=== PATIENT | female | born 1950 | race Caucasian/White ===

== ENCOUNTER → 2016-09-10 | Outpatient (CLI) | payer BC ==
[2016-09-10 09:58] LABS: Basophils % (A) 0 %; CH 35.1; CHCM 34.4; Eosinophils # (A) 0.1 k/uL (0-0.7); Eosinophils % (A) 2 %; HCT 41.1 % (34.0-46.0); HDW 2.37; HGB 13.5 gm/dL (11.4-16.0); Luc # (Auto) 0.18; Luc % (Auto) 2; Lymphocytes # (A) 1.5 k/uL (1.0-4.8); Lymphocytes % (A) 19 %; MCH 33.8 pg (25.0-35.0); MCHC 32.9 g/dL (31.0-37.0); MCV 102.6 fL (80.0-100.0); Macrocytosis Slight; Mean Platelet Volume 8.7; Monocytes # (A) 0.2 k/uL (0-1.0); Monocytes % (A) 3 %; Neutrophils # (A) 5.5 k/uL (1.3-7.7); Neutrophils % (A) 73 %; RDW 12.8 % (11.5-15.5); WBC 7.5 k/uL (3.8-10.6); WBC (Perox) 7.77
[2016-09-10 10:15] LABS: ALT 33 U/L (9-52); AST 30 U/L (14-36); Non-African American GFR(MDRD) >60 (>60 ml/min/1.73 sqM)
== END ==
LOC: LABWHC1 09:29
PROVIDERS: ATTEND Physician Assistant Medical
DX: L20.89 Other atopic dermatitis (principal)
CPT/HCPCS: 36415; 82565; 84450; 84460; 85025

== ENCOUNTER → 2016-12-11 | Outpatient (CLI) | payer BC ==
[2016-12-11 09:35] LABS: ALT 31 U/L (9-52); AST 32 U/L (14-36); Non-African American GFR(MDRD) >60 (>60 ml/min/1.73 sqM)
[2016-12-11 09:36] LABS: Basophils % (A) 0 %; CHCM 34.8; Eosinophils # (A) 0.2 k/uL (0-0.7); Eosinophils % (A) 3 %; HCT 42.1 % (34.0-46.0); HDW 2.37; HGB 14.5 gm/dL (11.4-16.0); Luc # (Auto) 0.22; Luc % (Auto) 3; Lymphocytes # (A) 1.8 k/uL (1.0-4.8); Lymphocytes % (A) 26 %; MCH 34.8 pg (25.0-35.0); MCHC 34.4 g/dL (31.0-37.0); Mean Platelet Volume 7.6; Monocytes # (A) 0.3 k/uL (0-1.0); Monocytes % (A) 5 %; Neutrophils # (A) 4.2 k/uL (1.3-7.7); Neutrophils % (A) 62 %; RBC 4.17 m/uL (3.80-5.40); RDW 12.8 % (11.5-15.5); WBC 6.8 k/uL (3.8-10.6); WBC (Perox) 6.97
== END | disposition home or self-care (01) ==
LOC: LABWHC1 08:31
PROVIDERS: ATTEND Physician Assistant Medical
DX: L20.89 Other atopic dermatitis (principal)
CPT/HCPCS: 36415; 82565; 84450; 84460; 85025

== ENCOUNTER → 2017-03-11 | Outpatient (CLI) | payer BC ==
[2017-03-11 11:47] LABS: Basophils % (A) 1 %; CH 34.3; CHCM 34.1; Eosinophils # (A) 0.1 k/uL (0-0.7); Eosinophils % (A) 2 %; HCT 41.1 % (34.0-46.0); HDW 2.37; Luc # (Auto) 0.15; Luc % (Auto) 2; Lymphocytes # (A) 1.7 k/uL (1.0-4.8); Lymphocytes % (A) 26 %; MCH 34.3 pg (25.0-35.0); MCHC 33.9 g/dL (31.0-37.0); MCV 101.1 fL (80.0-100.0); Macrocytosis Slight; Mean Platelet Volume 7.6; Monocytes # (A) 0.4 k/uL (0-1.0); Monocytes % (A) 6 %; Neutrophils # (A) 4.3 k/uL (1.3-7.7); Neutrophils % (A) 64 %; RBC 4.07 m/uL (3.80-5.40); RDW 13.3 % (11.5-15.5); WBC 6.7 k/uL (3.8-10.6); WBC (Perox) 7.14
[2017-03-11 12:00] LABS: ALT 48 U/L (9-52); AST 37 U/L (14-36); Non-African American GFR(MDRD) >60 (>60 ml/min/1.73 sqM)
== END ==
LOC: LABWHC1 10:53
PROVIDERS: ATTEND Physician Assistant Medical
DX: L20.89 Other atopic dermatitis (principal)
CPT/HCPCS: 36415; 82565; 84450; 84460; 85025

== ENCOUNTER → 2017-08-20 | Outpatient (CLI) | payer BC ==
[2017-08-20 08:03] LABS: Basophils # (A) 0.1 k/uL (0-0.2); Basophils % (A) 1 %; Eosinophils # (A) 0.4 k/uL (0-0.7); Eosinophils % (A) 5 %; HCT 40.2 % (34.0-46.0); HGB 13.4 gm/dL (11.4-16.0); Lymphocytes # (A) 2.3 k/uL (1.0-4.8); Lymphocytes % (A) 31 %; MCH 33.6 pg (25.0-35.0); MCHC 33.4 g/dL (31.0-37.0); MCV 100.5 fL (80.0-100.0); Mean Platelet Volume 7.5; Monocytes # (A) 0.3 k/uL (0-1.0); Monocytes % (A) 4 %; Neutrophils # (A) 4.1 k/uL (1.3-7.7); Neutrophils % (A) 57 %; Platelet Count 296 k/uL (150-450); RDW 12.6 % (11.5-15.5); WBC 7.2 k/uL (3.8-10.6)
[2017-08-20 08:33] LABS: ALT 32 U/L (9-52); AST 32 U/L (14-36); Albumin 4.2 g/dL (3.5-5.0); Anion Gap 11 mmol/L; Blood Urea Nitrogen 20 mg/dL (7-17); Calcium 10.5 mg/dL (8.4-10.2); Carbon Dioxide 30 mmol/L (22-30); Chloride 102 mmol/L (98-107); Glucose 93 mg/dL (74-99); Phosphorus 4.2 mg/dL (2.5-4.5); Potassium 4.4 mmol/L (3.5-5.1); Sodium 143 mmol/L (137-145)
== END ==
LOC: LABWHC1 07:22
PROVIDERS: ATTEND Physician Assistant Medical
DX: L20.89 Other atopic dermatitis (principal)
CPT/HCPCS: 36415; 80069; 84450; 84460; 85025

== ENCOUNTER → 2017-11-29 | Outpatient (CLI) | payer MEDICARE ==
[2017-11-29 10:35] LABS: Basophils % (A) 1 %; Eosinophils # (A) 0.2 k/uL (0-0.7); Eosinophils % (A) 4 %; HCT 43.4 % (34.0-46.0); HGB 14.6 gm/dL (11.4-16.0); Lymphocytes % (A) 34 %; MCH 33.5 pg (25.0-35.0); MCHC 33.6 g/dL (31.0-37.0); MCV 99.8 fL (80.0-100.0); Mean Platelet Volume 7.6; Monocytes # (A) 0.3 k/uL (0-1.0); Monocytes % (A) 5 %; Neutrophils # (A) 3.1 k/uL (1.3-7.7); Neutrophils % (A) 54 %; Platelet Count 304 k/uL (150-450); RBC 4.35 m/uL (3.80-5.40); RDW 12.8 % (11.5-15.5); WBC 5.7 k/uL (3.8-10.6)
[2017-11-29 11:03] LABS: ALT 34 U/L (9-52); AST 34 U/L (14-36); Albumin 4.9 g/dL (3.5-5.0); Anion Gap 17 mmol/L; Blood Urea Nitrogen 13 mg/dL (7-17); Calcium 10.6 mg/dL (8.4-10.2); Carbon Dioxide 26 mmol/L (22-30); Chloride 101 mmol/L (98-107); Glucose 112 mg/dL (74-99); Phosphorus 3.7 mg/dL (2.5-4.5); Potassium 4.2 mmol/L (3.5-5.1); Sodium 144 mmol/L (137-145)
== END | disposition home or self-care (01) ==
LOC: LABWHC1 09:39
PROVIDERS: ATTEND Physician Assistant Medical
DX: L20.89 Other atopic dermatitis (principal)
CPT/HCPCS: 36415; 80069; 84450; 84460; 85025

== ENCOUNTER → 2018-03-08 | Outpatient (CLI) | payer MEDICARE ==
[2018-03-08 11:47] LABS: Basophils % (A) 1 %; Eosinophils # (A) 0.3 k/uL (0-0.7); Eosinophils % (A) 5 %; HCT 45.2 % (34.0-46.0); HGB 14.7 gm/dL (11.4-16.0); Lymphocytes # (A) 1.7 k/uL (1.0-4.8); Lymphocytes % (A) 27 %; MCH 33.3 pg (25.0-35.0); MCHC 32.6 g/dL (31.0-37.0); MCV 102.2 fL (80.0-100.0); Macrocytosis Slight; Mean Platelet Volume 7.9; Monocytes # (A) 0.4 k/uL (0-1.0); Monocytes % (A) 6 %; Neutrophils # (A) 3.8 k/uL (1.3-7.7); Neutrophils % (A) 60 %; Platelet Count 250 k/uL (150-450); RBC 4.42 m/uL (3.80-5.40); RDW 13.3 % (11.5-15.5); WBC 6.3 k/uL (3.8-10.6)
[2018-03-08 11:48] LABS: ALT 30 U/L (9-52); AST 32 U/L (14-36); Albumin 4.5 g/dL (3.5-5.0); Anion Gap 9 mmol/L; Blood Urea Nitrogen 16 mg/dL (7-17); Calcium 10.8 mg/dL (8.4-10.2); Carbon Dioxide 32 mmol/L (22-30); Chloride 103 mmol/L (98-107); Glucose 93 mg/dL (74-99); Phosphorus 3.8 mg/dL (2.5-4.5); Sodium 144 mmol/L (137-145)
== END | disposition home or self-care (01) ==
LOC: LABWHC1 10:29
PROVIDERS: ATTEND Physician Assistant Medical
DX: L20.89 Other atopic dermatitis (principal)
CPT/HCPCS: 36415; 80069; 84450; 84460; 85025

== ENCOUNTER → 2018-03-27 | Outpatient (CLI) | payer MEDICARE ==
--- NOTE | 2018-03-29 11:31 | MM ---
Reason for exam: screening (asymptomatic). Last mammogram was performed 2 years and 3 months ago. History: Patient is postmenopausal. Family history of breast cancer in paternal aunt at age 50. Took hormonal contraceptives for 10 years beginning at age 22. Took estrogen for 2 months beginning at age 53. Physical Findings: A clinical breast exam by your physician is recommended on an annual basis and results should be correlated with mammographic findings. MG Screening Mammo w CAD Bilateral CC and MLO view(s) were taken. Prior study comparison: December 31, 2015, bilateral MG screening mammo w CAD. November 12, 2014, bilateral MG screening mammo w CAD. The breast tissue is extremely dense which could obscure a lesion on mammography. Prominent right axillary nodes were present in 2014. No significant changes when compared with prior studies. ASSESSMENT: Negative, BI-RAD 1 RECOMMENDATION: Routine screening mammogram of both breasts in 1 year. Patient should continue monthly self breast exams. A negative report should not preclude additional follow up of suspicious palpable abnormalities.
== END | disposition home or self-care (01) ==
LOC: RADMAMWWP 14:30
PROVIDERS: ATTEND Family Medicine
DX: Z12.31 Encounter for screening mammogram for malignant neoplasm of breast (principal)
CPT/HCPCS: 77067

== ENCOUNTER → 2018-09-11 | Outpatient (CLI) | payer MEDICARE ==
--- NOTE | 2018-09-12 12:37 | ECHOF ---
Referral Reason:R01.1 Cardiac Murmur MEASUREMENTS -------- HEIGHT: 165.1 cm WEIGHT: 49.9 kg BP: RVIDd: 2.6 cm (< 3.3) IVSd: 1.1 cm (0.6 - 1.1) LVIDd: 3.7 cm (3.9 - 5.3) LVPWd: 1.1 cm (0.6 - 1.1) IVSs: 1.3 cm LVIDs: 3.1 cm LVPWs: 1.2 cm LAESV Index (A-L): 18.58 ml/m Ao Diam: 2.8 cm (2.0 - 3.7) AV Cusp: 1.5 cm (1.5 - 2.6) MV EXCURSION: 17.310 mm (> 18.000) MV EF SLOPE: 85 mm/s (70 - 150) EPSS: 0.7 cm MV E Edwin: 0.70 m/s MV DecT: 377 ms MV A Edwin: 1.18 m/s MV E/A Ratio: 0.59 AV maxP.92 mmHg AV meanP.26 mmHg RAP: 5.00 mmHg RVSP: 21.33 mmHg FINDINGS -------- Sinus rhythm. This was a technically good study. The left ventricular size is normal. There is borderline concentric left ventricular hypertrophy. There is mild global hypokinesis of LV . Overall left ventricular systolic function is mildly impa ired with, an EF between 45 - 50 %. The right ventricle is normal in size and function. Normal LA size by volume 22+/-6 ml/m2. The right atrium is normal in size. Aortic valve is trileaflet and is mildly thickened. There is no evidence of aortic regurgitation. There is mild aortic stenosis present. Peak/mean gradient across the Aortic Valve is 17.92mmHg / 9 .26mmHg. The mitral valve leaflets are mildly thickened. There is trace to mild mitral regurgitation. Trace tricuspid regurgitation present. Right ventricular systolic pressure is normal at < 35 mmHg. There is no evidence of pulmonary hypertension. Trace/mild (physiologic) pulmonic regurgitation. The aortic root size is normal. Normal inferior vena cava with normal inspiratory collapse consistent with estimated right atrial pre ssure of 5 mmHg. There is a small pericardial effusion is located near the right ventricle. CONCLUSIONS -------- 1. Sinus rhythm. 2. This was a technically good study. 3. The left ventricular size is normal. 4. There is borderline concentric left ventricular hypertrophy. 5. There is mild global hypokinesis of LV . 6. Overall left ventricular systolic function is mildly impaired with, an EF between 45 - 50 %. 7. Normal LA size by volume 22+/-6 ml/m2. 8. Aortic valve is trileaflet and is mildly thickened. 9. There is mild aortic stenosis present. 10. Peak/mean gradient across the Aortic Valve is 17.92mmHg / 9.26mmHg. 11. The mitral valve leaflets are mildly thickened. 12. There is trace to mild mitral regurgitation. 13. Trace tricuspid regurgitation present. 14. Right ventricular systolic pressure is normal at < 35 mmHg. 15. There is no evidence of pulmonary hypertension. 16. Trace/mild (physiologic) pulmonic regurgitation. 17. The aortic root size is normal. 18. There is a small pericardial effusion is located near the right ventricle. RIVETER: Velasquez Figueroa RDCS
== END | disposition home or self-care (01) ==
LOC: RADECHMAIN 15:29
PROVIDERS: ATTEND Family Medicine
DX: I11.9 Hypertensive heart disease without heart failure (principal); I35.0 Nonrheumatic aortic (valve) stenosis; I31.3 Pericardial effusion (noninflammatory)
CPT/HCPCS: 93306

== ENCOUNTER → 2018-09-11 | Outpatient (CLI) | payer MEDICARE | LOC: LABWHC1 16:11 | PROVIDERS: ATTEND Family Medicine | DX: E78.00 Pure hypercholesterolemia, unspecified (principal) | CPT/HCPCS: 36415; 84443 ==

== ENCOUNTER → 2018-12-15 | Outpatient (CLI) | payer MEDICARE, OTHER ==
[2018-12-15 07:56] LABS: Basophils % (A) 1 %; Eosinophils # (A) 0.3 k/uL (0-0.7); Eosinophils % (A) 5 %; HCT 41.5 % (34.0-46.0); HGB 14.5 gm/dL (11.4-16.0); Lymphocytes # (A) 2.7 k/uL (1.0-4.8); Lymphocytes % (A) 42 %; MCH 34.6 pg (25.0-35.0); MCV 98.9 fL (80.0-100.0); Mean Platelet Volume 7.9; Monocytes # (A) 0.3 k/uL (0-1.0); Monocytes % (A) 5 %; Neutrophils # (A) 2.9 k/uL (1.3-7.7); Neutrophils % (A) 44 %; Platelet Count 294 k/uL (150-450); RBC 4.19 m/uL (3.80-5.40); RDW 12.7 % (11.5-15.5); WBC 6.5 k/uL (3.8-10.6)
== END | disposition home or self-care (01) ==
LOC: LABWHC1 07:20
PROVIDERS: ATTEND Physician Assistant Medical
DX: L20.89 Other atopic dermatitis (principal)
CPT/HCPCS: 36415; 82565; 84450; 84460; 84520; 85025

== ENCOUNTER → 2019-06-26 | Outpatient (CLI) | payer MEDICARE, OTHER ==
--- NOTE | 2019-06-28 13:35 | MM ---
Reason for exam: screening (asymptomatic). Last mammogram was performed 1 year and 3 months ago. History: Patient is postmenopausal. Family history of breast cancer in paternal aunt at age 50. Took hormonal contraceptives for 10 years beginning at age 22. Took estrogen for 2 months beginning at age 53. Physical Findings: A clinical breast exam by your physician is recommended on an annual basis and results should be correlated with mammographic findings. MG 3D Screening Mammo W/Cad Bilateral CC and MLO view(s) were taken. Prior study comparison: March 27, 2018, bilateral MG screening mammo w CAD. December 31, 2015, bilateral MG screening mammo w CAD. The breast tissue is heterogeneously dense. This may lower the sensitivity of mammography. Benign appearing bilateral calcifications. No suspicious abnormality. No significant changes when compared with prior studies. ASSESSMENT: Benign, BI-RAD 2 RECOMMENDATION: Routine screening mammogram of both breasts in 1 year.
== END | disposition home or self-care (01) ==
LOC: RADMAMWWP 07:51
PROVIDERS: ATTEND Family Medicine
DX: Z12.31 Encounter for screening mammogram for malignant neoplasm of breast (principal)
CPT/HCPCS: 77063; 77067

== ENCOUNTER → 2019-11-29 | Outpatient (CLI) | payer MEDICARE, OTHER ==
[2019-11-29 14:35] LABS: Basophils % (A) 1 %; Eosinophils # (A) 0.1 k/uL (0-0.7); Eosinophils % (A) 1 %; HCT 38.9 % (34.0-46.0); HGB 13.5 gm/dL (11.4-16.0); Lymphocytes # (A) 2.1 k/uL (1.0-4.8); Lymphocytes % (A) 33 %; MCH 35.4 pg (25.0-35.0); MCHC 34.8 g/dL (31.0-37.0); MCV 101.7 fL (80.0-100.0); Mean Platelet Volume 8.2; Monocytes # (A) 0.4 k/uL (0-1.0); Monocytes % (A) 6 %; Neutrophils # (A) 3.6 k/uL (1.3-7.7); Neutrophils % (A) 57 %; Platelet Count 302 k/uL (150-450); RBC 3.83 m/uL (3.80-5.40); RDW 12.3 % (11.5-15.5); WBC 6.3 k/uL (3.8-10.6)
[2019-11-30 00:10] LABS: African American GFR (CKD) 88.4 (60.0-200.0); Non-African American GFR(CKD) 76.3 (60.0-200.0)
== END | disposition home or self-care (01) ==
LOC: LABWHC1 13:39
PROVIDERS: ATTEND Physician Assistant Medical
DX: L20.89 Other atopic dermatitis (principal)
CPT/HCPCS: 36415; 82565; 84450; 84460; 84520; 85025

== ENCOUNTER 2020-04-28 09:06 | Inpatient (IN) | payer MEDICARE, OTHER ==
[2020-04-28] MEDS ORDERED: SODIUM CHLORIDE 0.9% 1,000 ML IV STA (09:47)
--- NOTE | 2020-04-28 09:51 | ED ---
Fall HPI - General Chief Complaint: Fall Stated Complaint: Fall, Shoulder Injury Time Seen by Provider: 04/28/20 09:28 Source: patient, family, RN notes reviewed, old records reviewed Mode of arrival: wheelchair - History of Present Illness Initial Comments: Patient is a 9-year-old female who was brought to emergency department today by her . reports that he walked into the kitchen after his son on the mother and his weight on the floor unresponsive and face down. Patient reports that she was getting glass water and seemed to feel lightheaded but does not report happened afterwards. Patient's and lifted her head up and brought her to the couch. She then came to and states she was having a headache. She does complain of some left-sided rib and chest pain. She reports that her headaches not somewhat improved at this time. She denies any previous cardiac history. She does take methotrexate for history of eczema. - Related Data Home Medications Medication Instructions Recorded Confirmed Folic Acid 1 mg PO SUMOTUTHFRSA 04/28/20 04/28/20 hydroCHLOROthiazide [Hydrodiuril] 25 mg PO DAILY 04/28/20 04/28/20 lisinopriL 40 mg PO DAILY 04/28/20 04/28/20 metHOTREXate sodium [Methotrexate] 15 mg PO WE 04/28/20 04/28/20 Allergies Allergy/AdvReac Type Severity Reaction Status Date / Time No Known Allergies Allergy Verified 04/28/20 11:34 Review of Systems ROS Statement: Those systems with pertinent positive or pertinent negative responses have been documented in the HPI. ROS Other: All systems not noted in ROS Statement are negative. Past Medical History Past Medical History: Hypertension History of Any Multi-Drug Resistant Organisms: None Reported Past Surgical History: Section, Hysterectomy Smoking Status: Current every day smoker Past Alcohol Use History: Occasional Past Drug Use History: Marijuana General Exam - General Exam Comments Initial Comments: 69-year-old female. Patient has alert and oriented 4. Limitations: no limitations General appearance: alert, in no apparent distress Head exam: Present: atraumatic, normocephalic, normal inspection, other (wig) Eye exam: Present: normal appearance ENT exam: Present: normal exam, mucous membranes moist Neck exam: Present: normal inspection. Absent: tenderness, meningismus, lymphadenopathy Respiratory exam: Present: normal lung sounds bilaterally. Absent: respiratory distress, wheezes, rales, rhonchi, stridor Cardiovascular Exam: Present: regular rate, normal rhythm, normal heart sounds. Absent: systolic murmur, diastolic murmur, rubs, gallop, clicks GI/Abdominal exam: Present: soft, normal bowel sounds. Absent: distended, tenderness, guarding, rebound, rigid Extremities exam: Present: normal inspection, full ROM, normal capillary refill. Absent: tenderness, pedal edema, joint swelling, calf tenderness Back exam: Present: normal inspection Neurological exam: Present: alert, oriented X3, CN II-XII intact Psychiatric exam: Present: normal affect, normal mood Course Vital Signs 04/28/20 04/28/20 04/28/20 09:08 09:27 09:30 Temperature 97.3 F L Pulse Rate 69 65 60 Respiratory 16 18 Rate Blood Pressure 168/69 159/66 O2 Sat by Pulse 96 99 Oximetry 04/28/20 04/28/20 04/28/20 10:00 10:30 11:00 Temperature Pulse Rate 63 60 60 Respiratory 16 18 18 Rate Blood Pressure 155/70 131/65 150/65 O2 Sat by Pulse 98 97 99 Oximetry Medical Decision Making - Medical Decision Making 69-year-old female presents emergency room today with chief complaint of syncopal episode. Patient was found on the floor by her . She reports that when she passed out she ground. She is complaining of left-sided nonreproducible chest and shoulder pain. Complains of feeling somewhat dizzy. Patient was given IV fluids labwork obtained. She was given CT brain and C- spine which was negative for acute process but did show evidence of any pneumothorax. Patient had a positive D-dimer test and had a CT chest angiogram. There is no evidence of PE but confirms a less than 5% left-sided pneumothorax. She does report a former smoker and history of COPD and likely perforated bleb. CT chest also shows some concern for developing infiltrate. Is no leukocytosis or fever or chills. Discussed continue to monitor this. Patient's case was discussed with Dr. Matt who discussed with [facility]. Patient was admitted this time with consults pulmonology for pneumothorax and cardiology for syncope. - Lab Data Result diagrams: 04/28/20 10:03 04/28/20 10:03 Lab Results 04/28/20 04/28/20 04/28/20 Range/Units 10:03 10:03 10:03 WBC 8.1 (3.8-10.6) k/uL RBC 3.95 (3.80-5.40) m/uL Hgb 13.9 (11.4-16.0) gm/dL Hct 41.3 (34.0-46.0) % MCV 104.5 H (80.0-100.0) fL MCH 35.1 H (25.0-35.0) pg MCHC 33.6 (31.0-37.0) g/dL RDW 12.1 (11.5-15.5) % Plt Count 258 (150-450) k/uL Neutrophils % 79 % Lymphocytes % 13 % Monocytes % 5 % Eosinophils % 2 % Basophils % 1 % Neutrophils # 6.3 (1.3-7.7) k/uL Lymphocytes # 1.0 (1.0-4.8) k/uL Monocytes # 0.4 (0-1.0) k/uL Eosinophils # 0.2 (0-0.7) k/uL Basophils # 0.0 (0-0.2) k/uL Macrocytosis Slight PT 10.4 (9.0-12.0) sec INR 1.0 (<1.2) APTT 25.8 (22.0-30.0) sec D-Dimer 3.27 H (<0.60) mg/L FEU Sodium (137-145) mmol/L Potassium (3.5-5.1) mmol/L Chloride (98-107) mmol/L Carbon Dioxide (22-30) mmol/L Anion Gap mmol/L BUN (7-17) mg/dL Creatinine (0.52-1.04) mg/dL Est GFR (CKD-EPI)AfAm (>60 ml/min/1.73 sqM) Est GFR (CKD-EPI)NonAf (>60 ml/min/1.73 sqM) Glucose (74-99) mg/dL Calcium (8.4-10.2) mg/dL Magnesium (1.6-2.3) mg/dL Total Bilirubin (0.2-1.3) mg/dL AST (14-36) U/L ALT (4-34) U/L Alkaline Phosphatase (38-126) U/L Troponin I (0.000-0.034) ng/mL Total Protein (6.3-8.2) g/dL Albumin (3.5-5.0) g/dL Urine Color Yellow Urine Appearance Clear (Clear) Urine pH 5.0 (5.0-8.0) Ur Specific [place] 1.015 (1.001-1.035) Urine Protein Negative (Negative) Urine Glucose (UA) Negative (Negative) Urine Ketones Negative (Negative) Urine Blood Negative (Negative) Urine Nitrite Negative (Negative) Urine Bilirubin Negative (Negative) Urine Urobilinogen <2.0 (<2.0) mg/dL Ur Leukocyte Esterase Large (Negative) Urine WBC <1 (0-5) /hpf Ur Squamous Epith Cells <1 (0-4) /hpf Urine Mucus Rare H (None) /hpf 04/28/20 04/28/20 Range/Units 10:03 10:03 WBC (3.8-10.6) k/uL RBC (3.80-5.40) m/uL Hgb (11.4-16.0) gm/dL Hct (34.0-46.0) % MCV (80.0-100.0) fL MCH (25.0-35.0) pg MCHC (31.0-37.0) g/dL RDW (11.5-15.5) % Plt Count (150-450) k/uL Neutrophils % % Lymphocytes % % Monocytes % % Eosinophils % % Basophils % % Neutrophils # (1.3-7.7) k/uL Lymphocytes # (1.0-4.8) k/uL Monocytes # (0-1.0) k/uL Eosinophils # (0-0.7) k/uL Basophils # (0-0.2) k/uL Macrocytosis PT (9.0-12.0) sec INR (<1.2) APTT (22.0-30.0) sec D-Dimer (<0.60) mg/L FEU Sodium 140 (137-145) mmol/L Potassium 3.6 (3.5-5.1) mmol/L Chloride 102 (98-107) mmol/L Carbon Dioxide 31 H (22-30) mmol/L Anion Gap 7 mmol/L BUN 15 (7-17) mg/dL Creatinine 0.73 (0.52-1.04) mg/dL Est GFR (CKD-EPI)AfAm >90 (>60 ml/min/1.73 sqM) Est GFR (CKD-EPI)NonAf 86 (>60 ml/min/1.73 sqM) Glucose 106 H (74-99) mg/dL Calcium 10.1 (8.4-10.2) mg/dL Magnesium 1.6 (1.6-2.3) mg/dL Total Bilirubin 0.6 (0.2-1.3) mg/dL AST 54 H (14-36) U/L ALT 31 (4-34) U/L Alkaline Phosphatase 76 (38-126) U/L Troponin I <0.012 (0.000-0.034) ng/mL Total Protein 7.6 (6.3-8.2) g/dL Albumin 4.4 (3.5-5.0) g/dL Urine Color Urine Appearance (Clear) Urine pH (5.0-8.0) Ur Specific [place] (1.001-1.035) Urine Protein (Negative) Urine Glucose (UA) (Negative) Urine Ketones (Negative) Urine Blood (Negative) Urine Nitrite (Negative) Urine Bilirubin (Negative) Urine Urobilinogen (<2.0) mg/dL Ur Leukocyte Esterase (Negative) Urine WBC (0-5) /hpf Ur Squamous Epith Cells (0-4) /hpf Urine Mucus (None) /hpf 04/28/20 10:21 EKG performed at 9:23 AM shows normal sinus rhythm possible left atrial enlargement. Left axis deviation. Nonspecific intraventricular block. Nonspecific T-wave and normality. Abnormal EKG noted. Ventricular rate of 64 bpm. ME interval is 136 ms. Curious duration is 134 ms. QT QTc is 490/505 ms. 04/28/20 10:22 Repeat EKG performed at 954 shows normal sinus rhythm possible left atrial enlargement. Left axis deviation. Lance a rate of 64 bpm. Verbal is 142 seconds. Serum instructions 136 most seconds. QT QTc is 510/26. - Radiology Data Radiology results: report reviewed Tiny left apical pneumothorax measuring under 5%. Mild to moderate ischemic changes. Infiltrate on the inferior left upper lobe. Correlate clinically. Chest x-ray shows COPD with left apical pneumothorax measuring 5%. CT brain and C-spine impression shows tiny left apical pneumothorax. No acute fracture dislocation of the cervical spine. cranial hemorrhage or mass effect or midline shift is seen. Disposition Clinical Impression: Syncope, Pneumothorax, left Disposition: ADMITTED IP TO THIS HOSP Condition: Stable Is patient prescribed a controlled substance at d/c from ED?: No Referrals: Deloris Love MD [Primary Care Provider] - 1-2 days Time of Disposition: 13:03
[2020-04-28] MEDS ORDERED: ASPIRIN 81 MG PO STA (09:58)
[2020-04-28 10:16] LABS: Basophils % (A) 1 %; Eosinophils # (A) 0.2 k/uL (0-0.7); Eosinophils % (A) 2 %; HCT 41.3 % (34.0-46.0); HGB 13.9 gm/dL (11.4-16.0); Lymphocytes % (A) 13 %; MCH 35.1 pg (25.0-35.0); MCHC 33.6 g/dL (31.0-37.0); MCV 104.5 fL (80.0-100.0); Macrocytosis Slight; Mean Platelet Volume 7.8; Monocytes # (A) 0.4 k/uL (0-1.0); Monocytes % (A) 5 %; Neutrophils # (A) 6.3 k/uL (1.3-7.7); Neutrophils % (A) 79 %; Platelet Count 258 k/uL (150-450); RBC 3.95 m/uL (3.80-5.40); RDW 12.1 % (11.5-15.5); WBC 8.1 k/uL (3.8-10.6)
[2020-04-28] MEDS ORDERED: MORPHINE SULFATE 4 MG/ML SYRINGE IVP STA (10:20)
[2020-04-28 10:26] LABS: ALT 31 U/L (4-34); AST 54 U/L (14-36); African American GFR (CKD) >90 (>60 ml/min/1.73 sqM); Albumin 4.4 g/dL (3.5-5.0); Alkaline Phosphatase 76 U/L (38-126); Anion Gap 7 mmol/L; Blood Urea Nitrogen 15 mg/dL (7-17); Calcium 10.1 mg/dL (8.4-10.2); Carbon Dioxide 31 mmol/L (22-30); Chloride 102 mmol/L (98-107); Glucose 106 mg/dL (74-99); Magnesium 1.6 mg/dL (1.6-2.3); Non-African American GFR(CKD) 86 (>60 ml/min/1.73 sqM); Potassium 3.6 mmol/L (3.5-5.1); Sodium 140 mmol/L (137-145); Total Bilirubin 0.6 mg/dL (0.2-1.3); Total Protein 7.6 g/dL (6.3-8.2)
[2020-04-28 10:36] LABS: Partial Thromboplastin Time 25.8 sec (22.0-30.0); Prothrombin Time 10.4 sec (9.0-12.0)
[2020-04-28 10:40] LABS: D-Dimer 3.27 mg/L FEU (<0.60)
--- NOTE | 2020-04-28 11:05 | XR ---
EXAMINATION TYPE: XR chest 2V DATE OF EXAM: 04/28/2020 COMPARISON: NONE TECHNIQUE: PA and lateral views submitted. HISTORY: Syncope FINDINGS: The lungs are clear and there is no pneumothorax, pleural effusion, or focal pneumonia. Diffuse hyp erinflation. Apical pleural thickening. There is a tiny left apical pneumothorax measuring less than 5%. Report called to ER physician. IMPRESSION: 1. COPD with tiny left apical pneumothorax measuring 5%.
--- NOTE | 2020-04-28 11:10 | CT ---
EXAMINATION TYPE: CT brain mojgan wo con DATE OF EXAM: 04/28/2020 COMPARISON: None HISTORY: Fall, syncope, loss of consciousness Automated exposure control for dose reduction was used. TECHNIQUE: CT scan of the head and cervical spine are performed without contrast. FINDINGS: There is no acute intracranial hemorrhage, mass effect, or midline shift identified. The ventricles and sulci are within normal limits in size. No extra-axial fluid collection. The globes are grossly symmetric. Calvarium is intact. There is a small extracranial subcutaneous hematoma of th e left parietal scalp. Paranasal sinuses and mastoid air cells are clear. Cervical spine is visualized in its entirety from C1 through upper thoracic levels and demonstrates s atisfactory alignment without evidence of acute fracture or dislocation. Prevertebral soft tissue ap pears within normal limits. The C1-C2 articulation is unremarkable. Degenerative changes of the spi ne with varying degrees of spinal canal and neural foramina narrowing. No high-grade canal stenosis. There is a tiny left apical pneumothorax. Secretions are seen within the hypopharynx. IMPRESSION: 1. Tiny left apical pneumothorax. 2. No acute fracture or dislocation evident in the cervical spine. 3. No acute intracranial hemorrhage, mass effect, or midline shift is seen.
--- NOTE | 2020-04-28 11:56 | CT ---
EXAMINATION TYPE: CT chest angio for PE DATE OF EXAM: 04/28/2020 COMPARISON: Chest x-ray earlier today HISTORY: Abnormal labs. syncopal episode today. Positive d-dimer. CT DLP: 219.9 mGycm Automated exposure control for dose reduction was used. CONTRAST: CT Chest for pulmonary embolism performed with with IV Contrast, patient injected with 100 mL of Isov ue 370. FINDINGS: LUNGS: Confirmation of tiny left apical pneumothorax measuring under 5% coronal image 80 for referenc e. Background mild to moderate underlying emphysematous change . Mild to moderate biapical pleural/pa renchyma scarring. Mild bibasilar linear scarring and/or atelectasis. Small 1.1 cm focus of groundgla ss opacity inferior left upper lobe axial image 78 with tiny cystic change and reticulation. No pleur al effusion seen bilaterally. No mediastinal shift. MEDIASTINUM: There is satisfactory enhancement of the pulmonary artery and its branches, there is no CT evidence for pulmonary embolism. There are no greater than 1 cm hilar or mediastinal lymph nodes. No cardiomegaly or pericardial effusion is seen. Satisfactory enhancement of the aorta without an eurysm or dissection. OTHER: Stringy dense fibroglandular tissue throughout both breasts is present.. IMPRESSION: 1. Tiny left apical pneumothorax measuring under 5%. 2. [id number] underlying emphysematous change with perhaps tiny amount of acute infiltrate in t he inferior left upper lobe. Correlate clinically. 3. No CTA evidence for acute pulmonary embolism. Results communicated to ordering emergency care physician office assistant receptionist via telephone at time of dictatio n.
[2020-04-28 12:41] LABS: Appearance,Urine Clear (Clear); Color,Urine Yellow; Protein,Urine Negative (Negative); Specific Gravity,Urine 1.015 (1.001-1.035)
[2020-04-28 12:42] LABS: Bilirubin,Urine Negative (Negative); Blood,Urine Negative (Negative); Glucose,Urine (UA) Negative (Negative); Ketones,Urine Negative (Negative); Leukocyte Esterase,Urine Large (Negative); Nitrite,Urine Negative (Negative); Urobilinogen,Urine <2.0 mg/dL (<2.0)
[2020-04-28 12:44] LABS: Mucus,Urine Rare /hpf; Squamous Epithelial Cell,Urine <1 /hpf (0-4); WBC,Urine <1 /hpf (0-5)
[2020-04-28] MEDS ORDERED: NALOXONE 0.4 MG/ML 1 ML VIAL IV PRN (13:10)
[2020-04-28] MEDS ORDERED: IBUPROFEN 400 MG TAB PO PRN (13:10)
[2020-04-28] MEDS ORDERED: ACETAMINOPHEN TAB 325 MG TAB PO PRN (13:10)
[2020-04-28] MEDS ORDERED: MORPHINE SULFATE 4 MG/ML SYRINGE IV PRN (13:10)
[2020-04-28] MEDS ORDERED: HYDROmorphone 0.5 MG/0.5 ML SYRINGE IVP PRN (13:10)
[2020-04-28] MEDS ORDERED: LORazepam 2 MG/ML INJ IV PRN (13:10)
[2020-04-28] MEDS: SODIUM CHLORIDE 0.9% 1,000 ML IV SCH ×2 (13:46→23:37)
[2020-04-28] MEDS: lisinopriL 20 MG TAB PO SCH (15:30)
[2020-04-28] MEDS: FOLIC ACID 1 MG TAB PO SCH (15:30)
[2020-04-28] MEDS: hydroCHLOROthiazide 25 MG TAB PO SCH (15:30)
--- NOTE | 2020-04-28 17:38 | P.CNPUL ---
History of Present Illness Consult date: 04/28/20 Requesting physician: José Luis Messer Reason for consult: pneumothorax Chief complaint: Passing out History of present illness: This is a 69-year-old female with known history of hypertension, history of eczema maintained on methotrexate for her eczema, patient has no previous cardiac history except for hypertension, has history of smoking but she is not on any bronchodilators for underlying COPD. Patient was brought into the ER by her , apparently she had a syncopal episode as she was trying to reach to grab something out of the cupboard. Patient was in her kitchen, and she brittni denly felt lightheaded and went unresponsive with face down. noted that the patient was extremely groggy and difficult to arouse for about 3 minutes. Later on the patient was fully awake, but she did not know what really happened except for the fact that she felt lightheaded, dizzy, and she knew that she was about to pass out. No seizure activity witnessed. No loss of control over urin e. Patient never had any history of seizures. She did have a ago one episode of syncope , but was not seen in the hospital for that episode, felt that this was related to excessive heat at the time. And this was in the summer. Patient denies any cardiac arrhythmia, denies any palpitations, denies any chest pain, denies any symptoms to suggest seizure history. Workup in the ER included a CT angiogram of the chest and it showed a small tiny apical left- sided pneumothorax less than 5%, not seen on the chest x-ray. Patient also noted to have multiple blebs/emphysematous laps on CT of the chest. Considering her small apical a left-sided pneumothorax, I was asked to see her on consu ltation. Patient is presently asymptomatic, denies any headache, no blurred vision, no dizziness, no chest pain, no shortness of breath, no cough, no wheezing, no nausea no vomiting no abdominal pain. Review of Systems Constitutional: Negative HEENT: Negative Pulmonary: Negative Cardiac: Negative GI: Negative Genitourinary: Negative Neurologic: As noted in HPI. Hematologic: Negative Endocrine: Negative Skin: History of eczema on methotrexate. Psychiatric: Negative Musculoskeletal: Negative Past Medical History Past Medical History: Asthma, GERD/Reflux, Hyperlipidemia, Hypertension, Pneumonia, Skin Disorder, Syncope Additional Past Medical History / Comment(s): Eczema, alopecia, uti. History of Any Multi-Drug Resistant Organisms: None Reported Past Surgical History: Section, Hysterectomy, Tonsillectomy, Tubal Ligation Additional Past Surgical History / Comment(s): colonoscopy Past Anesthesia/Blood Transfusion Reactions: No Reported Reaction Smoking Status: Former smoker - Past Family History Father Additional Family Medical History / Comment(s): Father had cardiac valve surgery at age 75 yrs. Mother Family Medical History: Coronary Artery Disease (CAD) Additional Family Medical History / Comment(s): Mother had CABG at the age of 60 yrs. Medications and Allergies Home Medications Medication Instructions Recorded Confirmed Type Folic Acid 1 mg PO SUMOTUTHFRSA 04/28/20 04/28/20 History hydroCHLOROthiazide [Hydrodiuril] 25 mg PO DAILY 04/28/20 04/28/20 History lisinopriL 40 mg PO DAILY 04/28/20 04/28/20 History metHOTREXate sodium [Methotrexate] 15 mg PO WE 04/28/20 04/28/20 History Allergies Allergy/AdvReac Type Severity Reaction Status Date / Time No Known Allergies Allergy Verified 04/28/20 11:34 Physical Exam Vitals: Vital Signs Temp Pulse Pulse Resp BP BP Pulse Ox 04/28/20 15:00 98.2 F 58 L 14 177/65 99 04/28/20 13:48 60 16 128/59 97 04/28/20 11:00 60 18 150/65 99 04/28/20 10:30 60 18 131/65 97 04/28/20 10:00 63 16 155/70 98 04/28/20 09:30 60 18 159/66 99 04/28/20 09:27 65 04/28/20 09:08 97.3 F L 69 16 168/69 96 Intake and Output 04/28/20 04/28/20 04/28/20 06:59 14:59 22:59 Other: Voiding Method Toilet Weight 47.627 kg 47.627 kg Physical Exam: Revealed 69-year-old female in no distress. Head: Atraumatic, normocephalic. HEENT:[Neck is supple.] [No neck masses.] [No thyromegaly.] [No JVD.] Chest: [Clear throughout, no crackles, no rhonchi, no wheezes.] Cardiac Exam: [Normal S1 and S2, no S3 gallop, no murmur.] Abdomen: [Soft, nontender, no megaly, no rebound, no guarding, normal bowel sounds.] Extremities: [No clubbing, no edema, no cyanosis.] Neurological Exam: [No focal neurologic deficit.] Alert and oriented 3. Psychiatric: Normal mood, affect and normal mental status examination. Skin: No rashes. Lymphatics: No cervical or supraclavicular lymphadenopathy. Results - Laboratory Findings CBC and BMP: 04/28/20 10:03 04/28/20 10:03 PT/INR, D-dimer PT 10.4 sec (9.0-12.0) 04/28/20 10:03 INR 1.0 (<1.2) 04/28/20 10:03 D-Dimer 3.27 mg/L FEU (<0.60) H 04/28/20 10:03 Abnormal lab findings: Abnormal Labs 04/28/20 04/28/20 04/28/20 10:03 10:03 10:03 MCV 104.5 H MCH 35.1 H D-Dimer 3.27 H Carbon Dioxide Glucose AST Urine Mucus Rare H 04/28/20 10:03 MCV MCH D-Dimer Carbon Dioxide 31 H Glucose 106 H AST 54 H Urine Mucus - Diagnostic Findings CT scan - chest: image reviewed (As noted in HPI.) Assessment and Plan Assessment: Impression: Small tiny apical left-sided pneumothorax, could be secondary to trauma/fall. Not clinically significant at this point. Syncope, workup is in progress, patient will be seen by cardiology and neurology on consultation for her syncopal episode, in the meantime, echocardiography and carotid Dopplers are pending. Suspect some component of COPD, relatively asymptomatic at this point. History of benign essential hypertension, maintained on Hydrea Diuril and lisinopril. History of eczema, treated with methotrexate. Tobacco dependence syndrome. Recommendation: Repeat chest x-ray in a.m. Suggest cardiology and neurology consultation. Syncope workup in progress. We'll reevaluate in a.m. No need for any intervention regarding her pneumothorax at this point. Counseled regarding smoking cessation. We will follow again in a.m. Time with Patient: Greater than 30
--- NOTE | 2020-04-28 22:03 | US ---
EXAMINATION TYPE: US carotid duplex BILAT DATE OF EXAM: 04/28/2020 COMPARISON: NONE CLINICAL HISTORY: syncope. Syncope. Previous smoker. Hypertension. EXAM MEASUREMENTS: RIGHT: Peak Systolic Velocity (PSV) cm/sec ----- Right CCA: 94.9 ----- Right ICA: 111.9 ----- Right ECA: 123.2 ICA/CCA ratio: 1.2 RIGHT: End Diastole cm/sec ----- Right CCA: 18.5 ----- Right ICA: 21.5 ----- Right ECA: 15.0 LEFT: Peak Systolic Velocity (PSV) cm/sec ----- Left CCA: 102.2 ----- Left ICA: 118.4 ----- Left ECA: 114.0 ICA/CCA ratio: 1.2 LEFT: End Diastole cm/sec ----- Left CCA: 18.3 ----- Left ICA: 29.6 ----- Left ECA: 12.3 VERTEBRALS (direction of flow): Right Vertebral: Antegrade Left Vertebral: Antegrade Rhythm: Normal Grayscale, color Doppler, spectral Doppler imaging performed of the carotid arteries. Waveform analys is does not show significant stenosis of the internal carotid arteries. Intimal thickening seen bilaterally. Minimal plaque seen bilateral bifurcations. No elevated velociti es at this time. Hypoechoic area with hyperechoic center seen left neck measurin.5 x 0.6 x 0.5 cm. IMPRESSION: No hemodynamic significant stenosis of the proximal internal carotid arteries by Doppler criteria, an indirect measurement of carotid stenosis Criteria for Assigning % of Stenosis / Diameter reduction (Estimation based on the indirect measurements of the internal carotid artery velocities (ICA PSV). 1. Normal (no stenosis)=ICA PSV < 125 cm/s: ratio < 2.0: ICA EDV<40 cm/s. 2. Less than 50% stenosis=ICA PSV < 125 cm/s: ratio < 2.0: ICA EDV<40 cm/s. 3. 50 to 69% stenosis=ICA PSV of 125 to 230 cm/s: ration 2.0 ? 4.0: ICA EDV 40-100 cm/s. 4. Greater than 70% stenosis to near occlusion= ICA PSV > 230 cm/s: ratio > 4.0: ICA EDV > 100 cm/s. 5. Near occlusion= ICA PSV velocities may be low or undetectable: variable ratio and ICA EDV. 6. Total occlusion=unable to detect flow.
[2020-04-29 03:46] LABS: Basophils % (A) 0 %; Eosinophils # (A) 0.3 k/uL (0-0.7); Eosinophils % (A) 4 %; HCT 39.1 % (34.0-46.0); HGB 12.6 gm/dL (11.4-16.0); Lymphocytes % (A) 31 %; MCH 34.8 pg (25.0-35.0); MCHC 32.1 g/dL (31.0-37.0); MCV 108.3 fL (80.0-100.0); Macrocytosis Moderate; Mean Platelet Volume 8.2; Monocytes # (A) 0.5 k/uL (0-1.0); Monocytes % (A) 7 %; Neutrophils # (A) 3.5 k/uL (1.3-7.7); Neutrophils % (A) 54 %; Platelet Count 230 k/uL (150-450); RBC 3.61 m/uL (3.80-5.40); RDW 13.4 % (11.5-15.5); WBC 6.4 k/uL (3.8-10.6)
[2020-04-29 03:59] LABS: African American GFR (CKD) >90 (>60 ml/min/1.73 sqM); Anion Gap 5 mmol/L; Blood Urea Nitrogen 11 mg/dL (7-17); Calcium 9.4 mg/dL (8.4-10.2); Carbon Dioxide 27 mmol/L (22-30); Chloride 105 mmol/L (98-107); Glucose 96 mg/dL (74-99); Non-African American GFR(CKD) >90 (>60 ml/min/1.73 sqM); Potassium 3.6 mmol/L (3.5-5.1); Sodium 137 mmol/L (137-145)
[2020-04-29] MEDS ORDERED: Potassium Replacement Protocol 1 EACH MISC MISCELLANE PRN (04:27)
[2020-04-29] MEDS ORDERED: POTASSIUM CHLORIDE ER 20 MEQ TAB.ER PO SCH (05:00)
[2020-04-29] MEDS ORDERED: Magnesium Replacement Protocol 1 EACH MISC MISCELLANE PRN (07:11)
[2020-04-29] MEDS ORDERED: ATROPINE SULFATE 0.1 MG/ML 10ML SYRINGE ONE (07:39)
[2020-04-29] MEDS: MAGNESIUM SULFATE-D5W PMX 1 GM in DEXTROSE/WATER 1 100ML.BAG IVPB SCH ×2 (07:50→09:24)
--- NOTE | 2020-04-29 08:18 | XR ---
EXAMINATION TYPE: XR chest 1V portable DATE OF EXAM: 04/29/2020 COMPARISON: Prior chest x-ray and chest CT 04/28/2020 HISTORY: Pneumothorax TECHNIQUE: Single frontal view of the chest is obtained. FINDINGS: Findings are similar to prior exam. Minimal left apical pneumothorax is present. No eviden t pleural effusion. No pneumonia. Cardiac mediastinal silhouette, pulmonary vascularity and aly are stable. The aorta is dense. There are overlying cardiac leads. Prominent lung volumes are consistent with underlying COPD, emphysema. IMPRESSION: Minimal residual left apical pneumothorax.
--- NOTE | 2020-04-29 08:41 | P.HPIM ---
History of Present Illness This is a pleasant 69 years old female with past medical history of asthma, GERD, hypertension, severe eczema on methotrexate and follow-up with , she is a patient of Dr. Deloris Jones. Presents because of passing out twice when she was at home. Patient was making her coffee when she felt dizzy and about to pass out, next think she found herself on the floor, her hold her getting into the couch. After the fall she felt some pain around the right shoulder plate However she denies chest pain or dyspnea or abdominal pain or change in urine or bowel habits. No fever she is ex-smoker and denies alcohol or illicit drugs she is bradycardic with heart rate 49-55, rest of 5-6 table. Labs are unremarkable including CBC, BMP, liver enzymes, urinalysis. Serial troponins 3 are negative with less than 0.012. Chest x-ray: 5% right apical pneumothorax CTA of the chest: No PE, 5% right apical pneumothorax, emphysema EKG showing normal sinus rhythm at [address]-T changes and 55.5 Repeat chest x-ray from 04/29 showing minimal residual left apical pneumothorax Review of Systems CONSTITUTIONAL: No fever, no malaise, no fatigue. HEENT: No recent visual problems or hearing problems. Denied any sore throat. CARDIOVASCULAR: No orthopnea, PND, no palpitations, no syncope. PULMONARY: No shortness of breath, no cough, no hemoptysis. GASTROINTESTINAL: No diarrhea, no nausea, no vomiting, no abdominal pain. Normoactive bowel sounds. NEUROLOGICAL: No headaches, no weakness, no numbness. HEMATOLOGICAL: Denies any bleeding or petechiae. GENITOURINARY: Denies any burning micturition, frequency, or urgency. MUSCULOSKELETAL/RHEUMATOLOGICAL: Denies any joint pain, swelling, or any muscle pain. ENDOCRINE: Denies any polyuria or polydipsia. Past Medical History Past Medical History: Asthma, GERD/Reflux, Hyperlipidemia, Hypertension, Pneumonia, Skin Disorder, Syncope Additional Past Medical History / Comment(s): Eczema, alopecia, uti. History of Any Multi-Drug Resistant Organisms: None Reported Past Surgical History: Section, Hysterectomy, Tonsillectomy, Tubal Ligation Additional Past Surgical History / Comment(s): colonoscopy Past Anesthesia/Blood Transfusion Reactions: No Reported Reaction Smoking Status: Former smoker - Past Family History Father Additional Family Medical History / Comment(s): Father had cardiac valve surgery at age 75 yrs. Mother Family Medical History: Coronary Artery Disease (CAD) Additional Family Medical History / Comment(s): Mother had CABG at the age of 60 yrs. Medications and Allergies Home Medications Medication Instructions Recorded Confirmed Type Folic Acid 1 mg PO SUMOTUTHFRSA 04/28/20 04/28/20 History hydroCHLOROthiazide [Hydrodiuril] 25 mg PO DAILY 04/28/20 04/28/20 History lisinopriL 40 mg PO DAILY 04/28/20 04/28/20 History metHOTREXate sodium [Methotrexate] 15 mg PO WE 04/28/20 04/28/20 History Allergies Allergy/AdvReac Type Severity Reaction Status Date / Time No Known Allergies Allergy Verified 04/28/20 11:34 Physical Exam Vitals: Vital Signs Temp Pulse Pulse Resp BP BP Pulse Ox 04/29/20 06:00 49 L 14 159/70 98 04/29/20 05:00 56 L 11 L 168/73 98 04/29/20 03:25 80 173/70 04/29/20 03:23 98 04/29/20 03:15 69 18 168/83 04/29/20 03:05 74 18 166/73 04/29/20 02:53 97.8 F 60 16 147/63 95 04/28/20 19:39 98.1 F 61 17 153/83 96 04/28/20 15:00 98.2 F 58 L 14 177/65 99 04/28/20 13:48 60 16 128/59 97 04/28/20 11:00 60 18 150/65 99 04/28/20 10:30 60 18 131/65 97 04/28/20 10:00 63 16 155/70 98 04/28/20 09:30 60 18 159/66 99 04/28/20 09:27 65 04/28/20 09:08 97.3 F L 69 16 168/69 96 Intake and Output 04/28/20 04/28/20 04/29/20 14:59 22:59 06:59 Intake Total 300 Output Total 545 Balance -245 Intake: IV 300 Sodium Chloride 0.9% 1, 300 000 ml @ 100 mls/hr IV . Q10H [facility] Rx#:[id number] Output: Urine 545 Other: Voiding Method Toilet Toilet Toilet # Voids 1 Weight 47.627 kg 47.627 kg 88.1 kg GENERAL: The patient is alert and oriented x3, not in any acute distress. Well developed, well nourished. HEENT: Pupils are round and equally reacting to light. EOMI. No scleral icterus. No conjunctival pallor. Normocephalic, atraumatic. No pharyngeal erythema. No thyromegaly. CARDIOVASCULAR: S1 and S2 present. No murmurs, rubs, or gallops. PULMONARY: Chest is clear to auscultation, no wheezing or crackles. ABDOMEN: Soft, nontender, nondistended, normoactive bowel sounds. No palpable organomegaly. MUSCULOSKELETAL: No joint swelling or deformity. EXTREMITIES: No cyanosis, clubbing, or pedal edema. NEUROLOGICAL: Gross neurological examination did not reveal any focal deficits. SKIN: No rashes. No petechiae Results CBC & Chem 7: 04/29/20 03:34 04/29/20 03:34 Labs: Abnormal Lab Results - Last 24 Hours (Table) 04/28/20 04/28/20 04/28/20 Range/Units 10:03 10:03 10:03 RBC (3.80-5.40) m/uL MCV 104.5 H (80.0-100.0) fL MCH 35.1 H (25.0-35.0) pg D-Dimer 3.27 H (<0.60) mg/L FEU Carbon Dioxide (22-30) mmol/L Glucose (74-99) mg/dL AST (14-36) U/L Urine Mucus Rare H (None) /hpf 04/28/20 04/29/20 Range/Units 10:03 03:34 RBC 3.61 L (3.80-5.40) m/uL MCV 108.3 H (80.0-100.0) fL MCH (25.0-35.0) pg D-Dimer (<0.60) mg/L FEU Carbon Dioxide 31 H (22-30) mmol/L Glucose 106 H (74-99) mg/dL AST 54 H (14-36) U/L Urine Mucus (None) /hpf Thrombosis Risk Factor Assmnt - Choose All That Apply Any of the Below Risk Factors Present?: Yes Other Risk Factors: Yes Each Risk Factor Represents 2 Points: Age 61-74 years Other congenital or acquired thrombophilia - If yes, enter type in comment: No Thrombosis Risk Factor Assessment Total Risk Factor Score: 2 Thrombosis Risk Factor Assessment Level: Low Risk Assessment and Plan Assessment: Cardiac pauses with syncope. Patient cardiac pauses were opted 12 seconds 5% right apical pneumothorax Essential hypertension Gastroesophageal reflux disease History of severe eczema on methotrexate Asthma, not in active tissue Plan: This is a pleasant 69 years old female who presents with cardiac pauses and syncope. Cardiology consult. External pacemaker, keep telemetry. Monitor the patient closely in the ICU under the supervision of pulmonary/critical care team. Labs and medication were reviewed.. Continue same treatment. Continue with symptomatic treatment. Resume home medication. Monitor lytes and vitals. DVT and GI prophylaxis. Further recommendationsas per clinical course of the patient DVT prophylaxis: Subcutaneous heparin GI Prophylaxis: Pepcid Prognosis is guarded
[2020-04-29] MEDS ORDERED: REGADENOSON 0.4 MG/5 ML SYRINGE IV ONE (09:09)
[2020-04-29] MEDS ORDERED: CAFFEINE CITRATE 60 MG/3 ML VIAL IV PRN (09:09)
[2020-04-29] MEDS ORDERED: AMINOPHYLLINE 500 MG/20 ML VIAL IV PRN (09:09)
--- NOTE | 2020-04-29 09:36 | P.CNNES ---
History of Present Illness Consult date: 04/29/20 Requesting physician: Andrew Anaya Reason for Consult: syncope History of Present Illness: This is a 69-year-old right-handed woman women with medical history of hypertention, eczema and tobacco use that presented to the emergency department on 04/28/2020 after a fall. She was brought to the ED by her . History was obtained from the patient and medical records. On 04/28/2020 the patient was trying to reach to grab something out of the cupboard in her kitchen and was on her feet for some time. She suddenly felt lightheaded and was worried she was going to pass out then became unresponsive with face down. Then she does not recall what transpired after. Patient was extremely groggy for about 3 minutes. She was told by her she was felt warm. There is no seizure activity witnessed. There is no urinary incontinence or bowel incontinence. Patient denies of the any chest palpitation, chest pain, any cardiac arrhythmia that she felt prior to the episode. She also denies of any blurring vision prior to the episode, any dizziness, any shortness of breath, any nausea or vomiting. She had a similar episode about 1 year ago, and she had was hot and was not hydrate during that episode and did not seek any medical attention. After the patient was awake she initially complained of some headache which then resolved. She was also complaining of left-sided rib pain as well as chest pain. Regarding her history was normal and no complication. She had no history seizure. She is on methotrexate therefore history of eczema. Denies history of alcohol. She does smoke and been smoking for 20 years, smoking 1PPD but in last one month smoking 3 cigarettes/day. Workup in the hospital consisted of: Initial vitals his blood pressure 160/69, heart rate of 69, respiratory of 16, temperature of 97.3 Fahrenheit oral and pulse ox of 96% at room air. CT of the head and the cervical spine was reported as no acute intracranial hemorrhage, mass effect or midline shift is seen. No acute fracture or dislocation evident in the cervical spine. There is a tiny apical pneumothorax. Personally reviewed the CT of the head and I agree with the radiological finding. Bilateral carotid duplex is reported as no hemodynamic significant stenosis of the proximal internal carotid arteries by Doppler criteria, and in direct measurement of carotid stenosis. EKG was reported as normal sinus rhythm. Ventricular rate of 64. Possible left atrial enlargement. Left axis deviation. Nonspecific intraventricular block. Septal infarct, age undetermined. Abnormal EKG. Chest x-ray was reported as COPD with tiny left apical pneumothorax measuring 5%. MCV is 104.5 but repeated is 108.3 Serum glucose is 106. Review of Systems Review of system: The 12 point system was reviewed and apparent positive and negative per HPI. Past Medical History Past Medical History: Asthma, GERD/Reflux, Hyperlipidemia, Hypertension, Pneumonia, Skin Disorder, Syncope Additional Past Medical History / Comment(s): Eczema, alopecia, uti. History of Any Multi-Drug Resistant Organisms: None Reported Past Surgical History: Section, Hysterectomy, Tonsillectomy, Tubal Ligation Additional Past Surgical History / Comment(s): colonoscopy Past Anesthesia/Blood Transfusion Reactions: No Reported Reaction Smoking Status: Former smoker - Past Family History Father Additional Family Medical History / Comment(s): Father had cardiac valve surgery at age 75 yrs. Mother Family Medical History: Coronary Artery Disease (CAD) Additional Family Medical History / Comment(s): Mother had CABG at the age of 60 yrs. Medications and Allergies Home Medications Medication Instructions Recorded Confirmed Type Folic Acid 1 mg PO SUMOTUTHFRSA 04/28/20 04/28/20 History hydroCHLOROthiazide [Hydrodiuril] 25 mg PO DAILY 04/28/20 04/28/20 History lisinopriL 40 mg PO DAILY 04/28/20 04/28/20 History metHOTREXate sodium [Methotrexate] 15 mg PO WE 04/28/20 04/28/20 History Allergies Allergy/AdvReac Type Severity Reaction Status Date / Time No Known Allergies Allergy Verified 04/28/20 11:34 Physical Examination - Vital Signs Vital Signs: Vital Signs Temp Pulse Pulse Resp BP BP Pulse Ox 04/29/20 07:00 55 L 11 L 155/58 98 04/29/20 06:00 49 L 14 159/70 98 04/29/20 05:00 56 L 11 L 168/73 98 04/29/20 03:25 80 173/70 04/29/20 03:23 98 04/29/20 03:15 69 18 168/83 04/29/20 03:05 74 18 166/73 04/29/20 02:53 97.8 F 60 16 147/63 95 04/28/20 19:39 98.1 F 61 17 153/83 96 04/28/20 15:00 98.2 F 58 L 14 177/65 99 04/28/20 13:48 60 16 128/59 97 04/28/20 11:00 60 18 150/65 99 04/28/20 10:30 60 18 131/65 97 04/28/20 10:00 63 16 155/70 98 04/28/20 09:30 60 18 159/66 99 04/28/20 09:27 65 04/28/20 09:08 97.3 F L 69 16 168/69 96 Intake and Output 04/28/20 04/29/20 04/29/20 22:59 06:59 14:59 Intake Total 300 Output Total 545 Balance -245 Intake: IV 300 Sodium Chloride 0.9% 1, 300 000 ml @ 100 mls/hr IV . Q10H [facility] Rx#:[id number] Output: Urine 545 Other: Voiding Method Toilet Toilet # Voids 1 Weight 47.627 kg 88.1 kg GENERAL: The patient is lying in bed and is not in acute distress. CHEST: The heart rate is regular rate rhythm. No murmurs to auscultation. No carotid bruit bilaterally. LUNG: Clear to auscultation bilaterally no wheezing noted throughout. Not labored breathing. ABDOMEN/GI: Bowel sounds present in all 4 quadrants. No tenderness to palpation throughout. NEUROLOGICAL: Higher mental function: The patient is awake, alert, oriented to self, place and time. Patient is following commands. No aphasia and no neglect. Cranial nerves: The pupils are round, equal and reactive to light and accomm odation. Visual velazco are full to confrontation throughout. Extraocular movement is intact no nystagmus is noted. Facial sensation is normal to touch throughout. The facial strength is normal throughout. Hearing is normal bilaterally to hand rub. Tongue is midline and moved [id number] without any difficulty. No dysarthria is noted. Shoulder shrug is normal bilaterally. Motor: The strength is 5 over 5 throughout. Normal tone and bulk. Cerebellum: Normal finger to nose heel to chin bilaterally. Sensation: Sensation is normal to touch throughout. Reflexes (right/left): 2+ throughout. Plantars are downgoing bilaterally. Results Calcium is 10.1. Magnesium is 1.6. AST is 54, ALTs 31. Alkaline Phosphatase 76. Coagulation study: PT 10.4, INR 1.0, PTT of 25.8 d-dimer 3.27. Urinalysis is reported as appears clear, nitrate was negative, leukocyte esterase was large, urine white blood cell is less than 1. - Laboratory Findings CBC and BMP: 04/29/20 03:34 04/29/20 03:34 Abnormal Lab Findings: Abnormal Labs 04/28/20 04/28/20 04/28/20 10:03 10:03 10:03 RBC MCV 104.5 H MCH 35.1 H D-Dimer 3.27 H Carbon Dioxide Glucose Magnesium AST Urine Mucus Rare H 04/28/20 04/29/20 04/29/20 10:03 03:34 03:44 RBC 3.61 L MCV 108.3 H MCH D-Dimer Carbon Dioxide 31 H Glucose 106 H Magnesium 1.5 L AST 54 H Urine Mucus Assessment and Plan Assessment: This is a 69-year-old woman that presented to the emergency department on 04/28/2020 after a syncopal episode. She denies of any urinary bowel incontinence or tongue bite. There is no history of seizures in the past. She did feel lightheaded prior to the episode. She had similar presentation about 1 year ago, and was dehydrate but did not seek medical attention. Syncope: Does not seem seizure. Rule out cardiac in etiology. Small tiny apical left sided pneumothorax likely due to trauma/fall. Macrocytosis History of benign essential hypertension History of eczema on methotrexate Tobacco dependence Plan: Ordered EEG. I will not start the patient on the antiepileptic drugs (AED) since this is not a clear seizure episodes. I will start AED if the EEG shows epileptiform discharges or seizure activity during the EEG. Ordered the orthostatic vitals (get blood pressure as well as heart rate lying sitting and standing). 2-D echo is pending Continue cardiac monitoring Cardiology team is consulted and appreciated the recommendation. Regarding the patient macrocytosis I ordered vitamin B12, methylmalonic acid and folate. Patient was counseled on tobacco cessation. Thank you for the consultation. Daljit Siegel M.D. Neuro-hospitalist Time with Patient: Greater than 30
[2020-04-29] MEDS: hydroCHLOROthiazide 25 MG TAB PO SCH (10:32)
[2020-04-29] MEDS: FOLIC ACID 1 MG TAB PO SCH (10:32)
[2020-04-29] MEDS: FAMOTIDINE 20 MG/2 ML VIAL IV SCH ×2 (10:32→20:39)
[2020-04-29] MEDS: lisinopriL 20 MG TAB PO SCH (10:32)
[2020-04-29] MEDS: SODIUM CHLORIDE 0.9% 1,000 ML IV SCH ×2 (10:40→17:30)
--- NOTE | 2020-04-29 11:02 | P.CRDCN ---
History of Present Illness Consult date: 04/29/20 History of present illness: CHIEF COMPLAINT: Syncope HISTORY OF PRESENT ILLNESS: This is a 69-year old female with a past medical history significant for mild COPD, hypertension, previous nicotine dependence and eczema. Patient does not follow with a deputy chief counsel. We have been asked to see the patient in consultation for syncope. Patient examined this morning bedside. Patient states she was in the kitchen yesterday and was reaching for a coffee mug and was going to make some coffee when she began to feel lightheaded. Apparently, the patient then fell to the floor and was unresponsive. Patients found her in the kitchen. Patient states that her did not witness any seizure activity. No loss of bowel or bladder. Patient denies feeling chest pain or pressure or shortness of breath prior to this. She states after a couple minutes she woke up and was on the couch. She denies previous history of seizures. She states she had an episode similar to this about one year ago however she did not seek medical attention at that time. Patient reports a family history of coronary artery disease and states her mom underwent a CABG when she was in her late 40s or early 50s. DIAGNOSTICS: EKG reveals sinus rhythm with ST depression in inferior leads. No old EKG available for comparison Chest xray COPD with tiny apical pneumothorax measuring 5% Laboratory data: W BC 6.4. Hemoglobin 12.6. Platelet count 2:30. D-dimer 3.27. Sodium 137. Potassium 3.6. BUN 11. Creatinine 0.62. Magnesium 1.5. Troponin negative 3 Current home cardiac medications include lisinopril 40 mg daily and HCTZ 25 mg daily REVIEW OF SYSTEMS: At the time of my exam: CONSTITUTIONAL: Denies fever or chills. HEENT: Denies blurred vision, vision changes, or eye pain. Denies hemoptysis CARDIOVASCULAR: Denies chest pain, orthopnea, PND or palpitations RESPIRATORY: No shortness of breath. GASTROINTESTINAL: Denies abdominal pain. Denies nausea or vomiting. HEMATOLOGIC: Denies bleeding disorders. GENITOURINARY: Denies any blood in urine. SKIN: Denies pruitis. Denies rash. PHYSICAL EXAM: VITAL SIGNS: Reviewed. GENERAL: Well-developed in no acute distress. HEENT: Head is normocephalic. Pupils are equal, round. Sclerae anicteric. Mucous membranes of the mouth are moist. Neck supple. No JVD or thyromegaly LUNGS: Respirations even and unlabored. Lungs essentially clear to auscultation bilaterally. HEART: Regular rate and rhythm. S1 and S2 heard. ABDOMEN: Soft. Nondistended. Nontender. EXTREMITIES: Normal range of motion. No clubbing or cyanosis. Peripheral pulses intact. No lower extremity edema NEUROLOGIC: Awake and alert. Oriented x 3. ASSESSMENT: Syncope Hypertension Tiny left apical pneumothorax measuring 5% COPD Nicotine dependence Family history of coronary artery disease PLAN: Neurology following. EEG ordered Resume home cardiac medications Obtain 2-D echo to assess cardiac structure and function Check orthostatic blood pressures Patient to undergo Lexiscan stress test today to assess for reversible ischemia Nurse practitioner note has been reviewed by physician. Signing provider agrees with the documented findings, assessment, and plan of care. Past Medical History Past Medical History: Asthma, GERD/Reflux, Hyperlipidemia, Hypertension, Pneumonia, Skin Disorder, Syncope Additional Past Medical History / Comment(s): Eczema, alopecia, uti. History of Any Multi-Drug Resistant Organisms: None Reported Past Surgical History: Section, Hysterectomy, Tonsillectomy, Tubal Ligation Additional Past Surgical History / Comment(s): colonoscopy Past Anesthesia/Blood Transfusion Reactions: No Reported Reaction Smoking Status: Former smoker - Past Family History Father Additional Family Medical History / Comment(s): Father had cardiac valve surgery at age 75 yrs. Mother Family Medical History: Coronary Artery Disease (CAD) Additional Family Medical History / Comment(s): Mother had CABG at the age of 60 yrs. Medications and Allergies Home Medications Medication Instructions Recorded Confirmed Type Folic Acid 1 mg PO SUMOTUTHFRSA 04/28/20 04/28/20 History hydroCHLOROthiazide [Hydrodiuril] 25 mg PO DAILY 04/28/20 04/28/20 History lisinopriL 40 mg PO DAILY 04/28/20 04/28/20 History metHOTREXate sodium [Methotrexate] 15 mg PO WE 04/28/20 04/28/20 History Allergies Allergy/AdvReac Type Severity Reaction Status Date / Time No Known Allergies Allergy Verified 04/28/20 11:34 Physical Exam Vitals: Vital Signs Temp Pulse Pulse Resp BP BP Pulse Ox 04/29/20 10:00 56 L 16 157/64 99 04/29/20 09:00 65 14 146/57 04/29/20 08:00 97.9 F 61 14 162/64 99 04/29/20 07:00 55 L 11 L 155/58 98 04/29/20 06:00 49 L 14 159/70 98 04/29/20 05:00 56 L 11 L 168/73 98 04/29/20 03:25 80 173/70 04/29/20 03:23 98 04/29/20 03:15 69 18 168/83 04/29/20 03:05 74 18 166/73 04/29/20 02:53 97.8 F 60 16 147/63 95 04/28/20 19:39 98.1 F 61 17 153/83 96 04/28/20 15:00 98.2 F 58 L 14 177/65 99 04/28/20 13:48 60 16 128/59 97 04/28/20 11:00 60 18 150/65 99 04/28/20 10:30 60 18 131/65 97 Intake and Output 04/28/20 04/29/20 04/29/20 22:59 06:59 14:59 Intake Total 300 200 Output Total 545 225 Balance -245 -25 Intake: IV 300 200 Sodium Chloride 0.9% 1, 300 200 000 ml @ 100 mls/hr IV . Q10H [facility] Rx#:[id number] Output: Urine 545 225 Other: Voiding Method Toilet Toilet Indwelling Catheter # Voids 1 Weight 47.627 kg 88.1 kg 47.523 kg Results 04/29/20 03:34 04/29/20 03:34 Cardiac Enzymes 04/28/20 04/28/20 04/28/20 Range/Units 10:03 10:03 15:25 AST 54 H (14-36) U/L Troponin I <0.012 <0.012 (0.000-0.034) ng/mL 04/28/20 Range/Units 18:57 AST (14-36) U/L Troponin I <0.012 (0.000-0.034) ng/mL Coagulation 04/28/20 Range/Units 10:03 PT 10.4 (9.0-12.0) sec APTT 25.8 (22.0-30.0) sec CBC 04/29/20 Range/Units 03:34 WBC 6.4 (3.8-10.6) k/uL RBC 3.61 L (3.80-5.40) m/uL Hgb 12.6 (11.4-16.0) gm/dL Hct 39.1 (34.0-46.0) % Plt Count 230 (150-450) k/uL Comprehensive Metabolic Panel 04/28/20 04/29/20 Range/Units 10:03 03:34 Sodium 140 137 (137-145) mmol/L Potassium 3.6 3.6 (3.5-5.1) mmol/L Chloride 102 105 (98-107) mmol/L Carbon Dioxide 31 H 27 (22-30) mmol/L BUN 15 11 (7-17) mg/dL Creatinine 0.73 0.62 (0.52-1.04) mg/dL Glucose 106 H 96 (74-99) mg/dL Calcium 10.1 9.4 (8.4-10.2) mg/dL AST 54 H (14-36) U/L ALT 31 (4-34) U/L Alkaline Phosphatase 76 (38-126) U/L Total Protein 7.6 (6.3-8.2) g/dL Albumin 4.4 (3.5-5.0) g/dL Current Medications Generic Name Dose Route Start Last Admin Trade Name Freq PRN Reason Stop Dose Admin Acetaminophen 650 mg 04/28/20 13:10 Acetaminophen Tab 325 Mg Tab PO Q6HR PRN Mild Pain or Fever > 100.5 Aminophylline 100 mg 04/29/20 09:09 Aminophylline 500 Mg/20 Ml Vial IV 04/29/20 23:00 ONCE PRN Patient Response Caffeine Citrate 60 mg 04/29/20 09:09 Caffeine Citrate 60 Mg/3 Ml Vial IV 04/29/20 23:00 ONCE PRN Patient Response Famotidine 20 mg 04/29/20 09:00 Famotidine 20 Mg/2 Ml Vial IV Q12HR [facility] Folic Acid 1 mg 04/28/20 15:00 04/28/20 15:30 Folic Acid 1 Mg Tab PO 1 mg [id number] [facility] Administration Heparin Sodium (Porcine) 5,000 unit 04/29/20 21:00 Heparin Sodium,Porcine 5,000 Unit/Ml 1 Ml Vial SQ Q12HR [facility] Hydrochlorothiazide 25 mg 04/28/20 15:00 04/28/20 15:30 Hydrochlorothiazide 25 Mg Tab PO 25 mg DAILY [facility] Administration Hydromorphone HCl 0.5 mg 04/28/20 13:10 Hydromorphone 0.5 Mg/0.5 Ml Syringe IVP Q3HR PRN Moderate Pain Sodium Chloride 1,000 mls @ 100 mls/hr 04/28/20 13:15 04/28/20 23:37 Saline 0.9% IV 100 mls/hr .Q10H [facility] Administration Ibuprofen 400 mg 04/28/20 13:10 Ibuprofen 400 Mg Tab PO Q6HR PRN Mild Pain or Fever > 100.5 Lisinopril 40 mg 04/28/20 15:00 04/28/20 15:30 Lisinopril 20 Mg Tab PO 40 mg DAILY [facility] Administration Lorazepam 0.5 mg 04/28/20 13:10 Lorazepam 2 Mg/Ml Inj IV Q6HR PRN Anxiety Methotrexate 15 mg 04/30/20 09:00 Methotrexate Sodium 2.5 Mg Tab PO WE [facility] Miscellaneous Information 1 each 04/29/20 04:27 Potassium Replacement Protocol 1 Each Misc MISCELLANE DAILY PRN Per Protocol Protocol Miscellaneous Information 1 each 04/29/20 07:11 Magnesium Replacement Protocol 1 Each Misc MISCELLANE DAILY PRN Per Protocol Protocol Morphine Sulfate 4 mg 04/28/20 13:10 Morphine Sulfate 4 Mg/Ml Syringe IV Q4HR PRN Severe Pain Naloxone HCl 0.2 mg 04/28/20 13:10 Naloxone 0.4 Mg/Ml 1 Ml Vial IV Q2M PRN Opioid Reversal Intake and Output 04/28/20 04/29/20 04/29/20 22:59 06:59 14:59 Intake Total 300 200 Output Total 545 225 Balance -245 -25 Intake: IV 300 200 Sodium Chloride 0.9% 1, 300 200 000 ml @ 100 mls/hr IV . Q10H [facility] Rx#:[id number] Output: Urine 545 225 Other: Voiding Method Toilet Toilet Indwelling Catheter # Voids 1 Weight 47.627 kg 88.1 kg 47.523 kg Patient Weight 04/30/20 06:59 Weight 47.523 kg 04/29/20 03:34 04/29/20 03:34
--- NOTE | 2020-04-29 11:37 | ECHOF ---
Referral Reason:syncope MEASUREMENTS -------- HEIGHT: 165.1 cm WEIGHT: 88.0 kg BP: RVIDd: 2.8 cm (< 3.3) IVSd: 0.8 cm (0.6 - 1.1) LVIDd: 4.3 cm (3.9 - 5.3) LVPWd: 1.3 cm (0.6 - 1.1) IVSs: 1.2 cm LVIDs: 3.2 cm LVPWs: 1.7 cm LAESV Index (A-L): 20.11 ml/m MV EXCURSION: 17.614 mm (> 18.000) MV EF SLOPE: 46 mm/s (70 - 150) EPSS: 0.6 cm MV E Edwin: 0.76 m/s MV DecT: 282 ms MV A Edwin: 0.97 m/s MV E/A Ratio: 0.78 RAP: 5.00 mmHg RVSP: 37.62 mmHg FINDINGS -------- BBB This was a technically good study. The left ventricular size is normal. Overall left ventricular systolic function is mildly impaired with, an EF between 45 - 50 %. The right ventricle is normal in size. The left atrial size is normal. Normal LA size by volume 22+/-6 ml/m2. The right atrial size is normal. The aortic valve is trileaflet, and appears structurally normal. No aortic stenosis or regurgitation. Mild mitral regurgitation is present. Mild tricuspid regurgitation present. There is mild pulmonary hypertension. The aortic root size is normal. There is no pericardial effusion. CONCLUSIONS -------- 1. The left ventricular size is normal. 2. Overall left ventricular systolic function is mildly impaired with, an EF between 45 - 50 %. 3. The right ventricle is normal in size. 4. The left atrial size is normal. 5. Normal LA size by volume 22+/-6 ml/m2. 6. The right atrial size is normal. 7. Mild mitral regurgitation is present. 8. Mild tricuspid regurgitation present. 9. There is mild pulmonary hypertension. 10. The aortic root size is normal. 11. There is no pericardial effusion. LINEN TECH: Nancy Patrick RDCS
--- NOTE | 2020-04-29 12:52 | CONS ---
CONSULTATION ADDENDUM NOTE: This is a 69-year-old lady with history of hypertension who presented to the hospital having had an episode of syncope at home. She had neurological evaluation and cardiac evaluation. Echo showed mild LV systolic dysfunction with an ejection fraction of 45%, but was otherwise within normal limits. Patient last night had a 12 second pause while on the activation unit which we were not aware of this morning Patient had a stress test. We are waiting on the stress test results. She has remained stable, otherwise. She did not have any further episodes of bradycardia. She in fact did not have a syncopal event even when she had the sinus pause last night. She needs a permanent pacemaker and if the stress test is abnormal, I will perform cardiac catheterization after the pacemaker. I reviewed this information with the patient and her . Will continue to monitor her in ICU. Will have an external pacemaker at bedside and if she has further episodes of bradycardia, if I have to I will perform a temporary pacemaker in the meantime. TAMIE / KATELYNNN: [id number] /
--- NOTE | 2020-04-29 13:15 | NM ---
EXAMINATION TYPE: NM stress lexiscan cardiolite DATE OF EXAM: 04/29/2020 COMPARISON: NONE HISTORY: Syncope TECHNIQUE: After the intravenous administration of 10.23 mCi Tc 99m Sestamibi - Cardiolite resting S PECT images acquired 45 minutes post injection. The patient received 0.4mg Lexiscan, 26.3 mCi Tc 99m Sestamibi - Stress images obtained [address] injection FINDINGS: There is extensive gut activity. Review of stress and rest SPECT images demonstrates some decreased uptake along the inferior apical l eft ventricle on stress as compared to rest imaging is seen on the horizontal long images. Gated ryan lysis shows normal wall motion with an estimated left ventricular ejection fraction of 41 %. IMPRESSION: Findings suggest pharmacologically induced left ventricular myocardial ischemia although there are te chnical difficulties with the exam. Abnormal low cardiac ejection fraction, consider echocardiographi c correlation
[2020-04-29] MEDS ORDERED: ATROPINE SULFATE 0.1 MG/ML 10ML SYRINGE IV PRN (13:30)
[2020-04-29] MEDS ORDERED: ALPRAZolam 0.5 MG TAB PO PRN (13:49)
[2020-04-29] MEDS ORDERED: ALPRAZolam 0.25 MG TAB PO PRN (13:49)
[2020-04-29] MEDS ORDERED: SODIUM CHLORIDE 0.9% 1,000 ML in EMPTY BAG 1 BAG IV ONE (13:49)
[2020-04-29] MEDS ORDERED: NITROGLYCERIN SL TABS 0.4 MG TAB SUBLINGUAL PRN (13:49)
--- NOTE | 2020-04-29 16:13 | EEG ---
ELECTROENCEPHALOGRAM REPORT DATE OF SERVICE: 04/29/2020 CLINICAL HISTORY: This is a 69-year-old woman who presented to the Emergency Department on 04/28/2020 after a syncopal episode at home. RELEVANT MEDICATION: Patient is not on any centrally acting medication. EEG TYPE: A routine 21 channel EEG was performed with video using the 10-20 electrode placement system. DESCRIPTION: Wakefulness is only obtained. During wakefulness, there is a posterior dominant rhythm of low to moderate voltage, reactive, well modulated, of 8 to 8.5 hertz, activity over bilateral hemisphere. There is no physiological stage 2 sleep seen. INTERICTAL AND ICTAL: None. ACTIVATION PROCEDURE: Photic stimulation did evoke a posterior driving response over bilateral hemisphere at low-flash frequencies. Hyperventilation was not performed because of the patient clinical history. CLINICAL INTERPRETATION: This is a normal routine EEG. There are no focal slowing, epileptiform discharges or seizure during the study. Clinical correlation is recommended. MMCATARINO / KATELYNNN: [id number] / LIN
--- NOTE | 2020-04-29 17:03 | P.PN ---
Subjective Progress Note Date: 04/29/20 Principal diagnosis: Syncope, most likely cardiac in nature unless proven otherwise. This is a 69-year-old female with known history of hypertension, history of eczema maintained on methotrexate for her eczema, patient has no previous cardiac history except for hypertension, has history of smoking but she is not on any bronchodilators for underlying COPD. Patient was brought into the ER by her , apparently she had a syncopal episode as she was trying to reach to grab something out of the cupboard. Patient was in her kitchen, and she suddenly felt lightheaded and went unresponsive with face down. noted that the patient was extremely groggy and difficult to arouse for about 3 minutes. Later on the patient was fully awake, but she did not know what really happened except for the fact that she felt lightheaded, dizzy, and she knew that she was about to pass out. No seizure activity witnessed. No loss of control over urine. Patient never had any history of seizures. She did have a ago one episode of syncope , but was not seen in the hospital for that episode, felt that this was related to excessive heat at the time. And this was in the summer. Patient denies any cardiac arrhythmia, denies any palpitations, denies any chest pain, denies any symptoms to suggest seizure history. Workup in the ER included a CT angiogram of the chest and it showed a small tiny apical left- sided pneumothorax less than 5%, not seen on the chest x-ray. Patient also noted to have multiple blebs/emphysematous laps on CT of the chest. Considering her small apical a left-sided pneumothorax, I was asked to see her on consultation. Patient is presently asymptomatic, denies any headache, no blurred vision, no dizziness, no chest pain, no shortness of breath, no cough, no wheezing, no nausea no vomiting no abdominal pain. 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 Patient was seen already by cardiology and she was seen by neurology, no active issues today. EEG was done, and cardiology is recommending a stress test and 2- D echocardiogram. Pulmonary-jackson, follow-up chest x-ray showed no evidence of any significant pneumothorax, and obviously no active pulmonary issues at this point. Patient could be transferred to a monitor bed on selective today. And I will see the patient on when necessary basis. Objective - Vital Signs Vital signs: Vital Signs Temp 97.9 F 04/29/20 08:00 Pulse 63 04/29/20 15:00 Resp 20 04/29/20 15:00 BP 168/71 04/29/20 15:00 Pulse Ox 98 04/29/20 15:00 Intake & Output 04/28/20 04/29/20 04/29/20 18:59 06:59 18:59 Intake Total 300 460 Output Total 545 975 Balance -245 -515 Weight 47.627 kg 88.1 kg 47.52 kg Intake: IV 300 460 Magnesium Sulfate-D5w Pmx 200 1 gm In Dextrose/Water 1 100ml.bag @ 100 mls/hr IVPB Q1H [facility] Rx#: [id number] Sodium Chloride 0.9% 1, 300 200 000 ml @ 100 mls/hr IV . Q10H [facility] Rx#:[id number] Sodium Chloride 0.9% 1, 60 000 ml @ 20 mls/hr IV . Q24H [facility] Rx#:[id number] Output: Urine 545 975 Other: Voiding Method Toilet Toilet Indwelling Catheter # Voids 1 - Exam Physical Exam: Revealed 69-year-old female in no distress. Head: Atraumatic, normocephalic. HEENT:[Neck is supple.] [No neck masses.] [No thyromegaly.] [No JVD.] Chest: [Clear throughout, no crackles, no rhonchi, no wheezes.] Cardiac Exam: [Normal S1 and S2, no S3 gallop, no murmur.] Abdomen: [Soft, nontender, no megaly, no rebound, no guarding, normal bowel sounds.] Extremities: [No clubbing, no edema, no cyanosis.] Neurological Exam: [No focal neurologic deficit.] Alert and oriented 3. Psychiatric: Normal mood, affect and normal mental status examination. Skin: No rashes. Lymphatics: No cervical or supraclavicular lymphadenopathy. - Labs CBC & Chem 7: 04/29/20 03:34 04/29/20 11:14 Labs: Abnormal Lab Results - Last 24 Hours (Table) 04/29/20 04/29/20 Range/Units 03:34 03:44 RBC 3.61 L (3.80-5.40) m/uL MCV 108.3 H (80.0-100.0) fL Magnesium 1.5 L (1.6-2.3) mg/dL Assessment and Plan Assessment: Impression: Small tiny apical left-sided pneumothorax, could be secondary to trauma/fall. Not clinically significant at this point. Syncope, most likely cardiac in nature and cardiology is following regarding her arrhythmia issues. Suspect some component of COPD, relatively asymptomatic at this point. History of benign essential hypertension, maintained on Hydrea Diuril and lisinopril. History of eczema, treated with methotrexate. Tobacco dependence syndrome. Recommendation: Syncope workup in progress. No active pulmonary issues. Patient is being followed by cardiology and neurology. Will follow as needed. Time with Patient: Less than 30
[2020-04-29] MEDS: HEPARIN SODIUM,PORCINE 5,000 UNIT/ML 1 ML VIAL SQ SCH (20:39)
[2020-04-30 04:06] LABS: Basophils % (A) 1 %; Eosinophils # (A) 0.1 k/uL (0-0.7); Eosinophils % (A) 2 %; HCT 35.6 % (34.0-46.0); Lymphocytes # (A) 1.4 k/uL (1.0-4.8); Lymphocytes % (A) 22 %; MCH 35.1 pg (25.0-35.0); MCHC 33.8 g/dL (31.0-37.0); MCV 103.9 fL (80.0-100.0); Macrocytosis Slight; Mean Platelet Volume 8.1; Monocytes # (A) 0.4 k/uL (0-1.0); Monocytes % (A) 6 %; Neutrophils # (A) 4.5 k/uL (1.3-7.7); Neutrophils % (A) 68 %; Platelet Count 241 k/uL (150-450); RBC 3.42 m/uL (3.80-5.40); WBC 6.6 k/uL (3.8-10.6)
[2020-04-30 04:19] LABS: African American GFR (CKD) >90 (>60 ml/min/1.73 sqM); Anion Gap 6 mmol/L; Blood Urea Nitrogen 9 mg/dL (7-17); Calcium 9.6 mg/dL (8.4-10.2); Carbon Dioxide 27 mmol/L (22-30); Chloride 102 mmol/L (98-107); Glucose 96 mg/dL (74-99); Magnesium 1.6 mg/dL (1.6-2.3); Non-African American GFR(CKD) >90 (>60 ml/min/1.73 sqM); Potassium 3.7 mmol/L (3.5-5.1); Sodium 135 mmol/L (137-145)
[2020-04-30] MEDS: POTASSIUM CHLORIDE 10 MEQ in WATER FOR INJECTION 1 100ML.BAG IVPB SCH ×2 (04:55→06:19)
[2020-04-30 05:48] LABS: Glucose,Whole Blood 104 mg/dL (75-99)
[2020-04-30] MEDS ORDERED: SODIUM CHLORIDE 0.9% 1,000 ML in EMPTY BAG 1 BAG IV ONE ×2 (06:00)
[2020-04-30] MEDS ORDERED: ATORVASTATIN 80 MG TAB PO ONE (07:00)
[2020-04-30] MEDS ORDERED: ASPIRIN 325 MG TAB PO ONE (07:00)
[2020-04-30] MEDS: MAGNESIUM SULFATE-D5W PMX 1 GM in DEXTROSE/WATER 1 100ML.BAG IVPB SCH ×2 (08:24→09:35)
[2020-04-30] MEDS: HEPARIN SODIUM,PORCINE 5,000 UNIT/ML 1 ML VIAL SQ SCH ×2 (08:24→20:56)
[2020-04-30] MEDS ORDERED: metHOTREXate sodium 2.5 MG TAB PO SCH (09:00)
[2020-04-30] MEDS: lisinopriL 20 MG TAB PO SCH (09:05)
[2020-04-30] MEDS: FAMOTIDINE 20 MG/2 ML VIAL IV SCH (09:05)
[2020-04-30] MEDS: hydroCHLOROthiazide 25 MG TAB PO SCH (09:05)
[2020-04-30] MEDS ORDERED: MIDAZOLAM 2 MG/2 ML VIAL IVP ONE (10:05)
[2020-04-30] MEDS ORDERED: LIDOCAINE 1% INJ 10MG/ML (20 ML MDV) ONE (10:13)
--- NOTE | 2020-04-30 10:17 | XR ---
EXAMINATION TYPE: XR chest 1V DATE OF EXAM: 04/30/2020 COMPARISON: Prior chest x-ray 04/29/2020 HISTORY: Shortness of breath TECHNIQUE: Single frontal view of the chest is obtained. FINDINGS: Prominent lung volumes suggest underlying COPD. Aorta is dense. Left-sided apical pneumotho rax is essentially resolved. There is no focal air space opacity, pleural effusion, or pneumothorax s een. The cardiac silhouette size is within normal limits. The osseous structures are intact. IMPRESSION: No acute process.
[2020-04-30] MEDS ORDERED: fentaNYL (PF) 50 MCG/ML 2 ML AMP ONE (10:20)
[2020-04-30] MEDS ORDERED: ceFAZolin 1,000 MG in SODIUM CHLORIDE 0.9% IRRIGATIO 250 ML IRRIGATION ONE (10:34)
[2020-04-30] MEDS ORDERED: IV FLUID CONTINUATION 500 ML IV ONE (10:40)
[2020-04-30] MEDS ORDERED: SODIUM CHLORIDE 0.9% 250 ML IV ONE (10:40)
[2020-04-30] MEDS ORDERED: IOPAMIDOL-250 50ML BTL IV ONE (10:45)
[2020-04-30] MEDS ORDERED: fentaNYL (PF) 50 MCG/ML 2 ML AMP IVP ONE (11:05)
[2020-04-30] MEDS: LIDOCAINE 1% INJ 10MG/ML (20 ML MDV) SQ ONE ×2 (11:16→11:24)
[2020-04-30] MEDS ORDERED: DEXTROSE 5% IN WATER 100 ML with AMIODARONE 150 MG IV ONE (11:40)
--- NOTE | 2020-04-30 12:35 | P.PCN ---
Date of Procedure: 04/30/20 Preoperative Diagnosis: Syncope with documented sinus pauses of more than 7 seconds Postoperative Diagnosis: The same Procedure(s) Performed: Permanent pacemaker implantation, dual-chamber,axillary venography Description of Procedure: HISTORY: This is a 69-year-old female with history of athritis and COPD who was admitted to the hospital with syncopal episode. Patient wasn't performed. Mental to have sinus pauses of more than 7 seconds in the hospital. In view of sick sinus syndrome and history of syncope, Dr. Bolanos requested permanent pacemaker implantation. CONSENT: Dr. Bolanos have discussed the risks, benefits and alternative therapies for the above-mentioned procedure and for both sedation/analgesia as well as necessary blood product administration, if indicated, as they pertain to this patient. The patient has indicated understanding and acceptance of the risks and procedures discussed. PROCEDURE: Patient was brought to the lab in a fasting state. Patient was prepped and draped in the usual fashion. Patient was given IV sedation with fentanyl and Versed. The skin below the left clavicle was infiltrated with lidocaine. An incision was made parallel to deltopectoral groove was deepened until the pectoral fascia was exposed. A pocket was created by blunt dissection and cautery. Axillary venography was performed to delineate the course of the axillary vein. A single venous stick was performed into subclavian vein and 2 sheaths were advanced over the guidewires into the subclavian vein using exchange technique. During advancement of the ventricular lead into the ventricle, patient developed a sustained ventricular arrhythmia requiring shock. She was also given bolus of 150 mg of amiodarone IV Conscious Sedation: Versed 1mg Fentanyl 25 g Duration 53minutes LEADS: ATRIAL: . This is manufactured by [employer]. Model number is 5076-45. The serial number is [id number] VENTRICULAR: This is manufactured by [employer]. Model number is 5076-52 and the serial number is [id number] The device: This is manufactured by [employer]. Model number is [id number] and the serial number is [id number] The ventricular lead is maneuvered l with help of a straight and curved stylets into the left ventricle apical region. Satisfactory position was obtained and threshold measurements were made. The atrial lead was then maneuvered into the right atrial appendage. And thresholds were obtained. THRESHOLDS: ATRIUM: The minimal pacing threshold was 0.5 at pulse width of 0.4 with impedance of 532 P-wave: 3.8 VENTRICLE:The minimal patient threshold is 0.5 at pulse width of 0.4 and with impedance of 779 R-wave: 6.3 The leads and pulse generator remained in the pocket after it was washed with antibiotics. Pocket was closed in the usual fashion. The fascia was closed with 2-0 Prolene ,the subcutaneous tissue was closed with 3-0 Prolene and the skin was closed with 4-0 Prolene. PROGRAMMING: MODE: AAIR with mode switch to DDDR RATE:60 to 130 OUTPUT: Atrium : 3.5 Ventricle: 3.5 FINAL IMPRESSION: Successful implantation of dual-chamber pacemaker, axillary venography COMPLICATIONS: None PLAN: Patient will be continued on prophylactic antibiotics. Monitored on the telemetry unit. Possible discharge in 24 hours. Chest x-ray in am.
--- NOTE | 2020-04-30 14:20 | XR ---
EXAMINATION TYPE: XR chest 1V portable DATE OF EXAM: 04/30/2020 COMPARISON: Prior chest x-ray 04/30/2020 HISTORY: Lead placement check TECHNIQUE: Single frontal view of the chest is obtained. FINDINGS: There is a generator in the left pectoral region, leads in the right atrium and ventricle. Patient is rotated. There is no focal air space opacity, pleural effusion, or pneumothorax seen. The re are overlying cardiac leads. The cardiac silhouette size is within normal limits. The osseous st ructures are intact. IMPRESSION: No evident complication status post pacemaker placement.
--- NOTE | 2020-04-30 14:23 | EST ---
EXERCISE STRESS AGE: 69 SEX: F HT: 65" WT: 194 PROTOCOL: Lexiscan Cardiolite Stress Test HEART RATE REST: 57 BLOOD PRESSURE REST: 167/68 MAXIMUM HEART RATE ACHIEVED: 92 MAXIMUM BLOOD PRESSURE: 167/68 INDICATIONS: Syncope CLINICAL INFORMATION: Baseline EKG revealed normal sinus rhythm with leftward axis, poor R-wave progression, IVCD, possible old anteroseptal MS. With Lexiscan administration, heart rate changed from 57-92 beats per minute and blood pressure changed from 167/68 to 144/57. Patient did not have any significant symptoms and EKG remained inconclusive. By EKG criteria, this is an inconclusive Lexiscan stress test because of resting EKG changes. The nuclear scan results which are more pertinent will be reported by the radiologist. MMCATARINO / KATELYNNN: [id number] /
[2020-04-30] MEDS: SODIUM CHLORIDE 0.9% 1,000 ML IV SCH (18:03)
--- NOTE | 2020-04-30 18:53 | P.PN ---
Subjective This is a pleasant 69 years old female with past medical history of asthma, GERD, hypertension, severe eczema on methotrexate and follow-up with , she is a patient of Dr. Deloris Jones. Presents because of passing out twice when she was at home. Patient was making her coffee when she felt dizzy and about to pass out, next think she found herself on the floor, her hold her getting into the couch. After the fall she felt some pain around the right shoulder plate However she denies chest pain or dyspnea or abdominal pain or change in urine or bowel habits. No fever she is ex-smoker and denies alcohol or illicit drugs she is bradycardic with heart rate 49-55, rest of 5-6 table. Labs are unremarkable including CBC, BMP, liver enzymes, urinalysis. Serial troponins 3 are negative with less than 0.012. Chest x-ray: 5% right apical pneumothorax CTA of the chest: No PE, 5% right apical pneumothorax, emphysema EKG showing normal sinus rhythm at [address]-T changes and 55.5 Repeat chest x-ray from 04/29 showing minimal residual left apical pneumothorax 04/30/2020 Patient underwent permanent pacemaker placement today, repeat chest x-ray postprocedure showed no complication. The Lexiscan stress test showing left ventricular ischemia, cardiology on the case and patient continued on aspirin 325 mg Echocardiogram showed ejection fraction 45-50% B12 is within normal limits at 683 We will order physical therapy evaluation Patient was transferred out of the ICU to select unit Objective - Vital Signs Vital signs: Vital Signs Temp 97.6 F 04/30/20 08:00 Pulse 68 04/30/20 12:12 Resp 16 04/30/20 12:12 BP 171/77 04/30/20 12:12 Pulse Ox 98 04/30/20 12:12 Intake & Output 04/29/20 04/30/20 04/30/20 18:59 06:59 18:59 Intake Total 520 512.5 63587.0 Output Total 1175 910 420 Balance -655 -397.5 9970.0 Weight 47.52 kg 48 kg Intake: IV 520 412.5 245.0 Magnesium Sulfate-D5w Pmx 200 1 gm In Dextrose/Water 1 100ml.bag @ 100 mls/hr IVPB Q1H [facility] Rx#: [id number] Sodium Chloride 0.9% 1, 200 000 ml @ 100 mls/hr IV . Q10H [facility] Rx#:[id number] Sodium Chloride 0.9% 1, 120 80 000 ml @ 20 mls/hr IV . Q24H [facility] Rx#:[id number] Sodium Chloride 0.9% 1, 332.5 95.0 000 ml In Empty Bag 1 bag @ 1 ML/KG/HR 47.52 mls/ hr IV .Q21H3M [facility] Rx#: [id number] Intake, IV Titration 100 29606 Amount Magnesium Sulfate-D5w Pmx 45262 1 gm In Dextrose/Water 1 100ml.bag @ 100 mls/hr IVPB Q1H [facility] Rx#: [id number] Potassium Chloride 10 meq 100 In Water For Injection 1 100ml.bag @ 100 mls/hr IVPB Q1H [facility] Rx#: [id number] Output: Urine 1175 910 420 Other: Voiding Method Indwelling Catheter Indwelling Catheter Indwelling Catheter - Exam GENERAL: The patient is alert and oriented x3, not in any acute distress. Well developed, well nourished. HEENT: Pupils are round and equally reacting to light. EOMI. No scleral icterus. No conjunctival pallor. Normocephalic, atraumatic. No pharyngeal erythema. No thyromegaly. CARDIOVASCULAR: S1 and S2 present. No murmurs, rubs, or gallops. PULMONARY: Chest is clear to auscultation, no wheezing or crackles. ABDOMEN: Soft, nontender, nondistended, normoactive bowel sounds. No palpable organomegaly. MUSCULOSKELETAL: No joint swelling or deformity. EXTREMITIES: No cyanosis, clubbing, or pedal edema. NEUROLOGICAL: Gross neurological examination did not reveal any focal deficits. SKIN: No rashes. no petechiae. - Labs CBC & Chem 7: 04/30/20 03:28 04/30/20 03:28 Labs: Abnormal Lab Results - Last 24 Hours (Table) 04/29/20 04/30/20 04/30/20 Range/Units 11:14 03:28 03:28 RBC 3.42 L (3.80-5.40) m/uL MCV 103.9 H (80.0-100.0) fL MCH 35.1 H (25.0-35.0) pg Sodium 135 L (137-145) mmol/L POC Glucose (mg/dL) (75-99) mg/dL RBC Folate 922 H (280 - 791) ng/mL 04/30/20 Range/Units 05:46 RBC (3.80-5.40) m/uL MCV (80.0-100.0) fL MCH (25.0-35.0) pg Sodium (137-145) mmol/L POC Glucose (mg/dL) 104 H (75-99) mg/dL RBC Folate (280 - 791) ng/mL Assessment and Plan Assessment: Cardiac pauses with syncope. Patient cardiac pauses were opted 12 seconds 5% right apical pneumothorax Essential hypertension Gastroesophageal reflux disease History of severe eczema on methotrexate Asthma, not in active tissue Plan: This is a pleasant 69 years old female who presents with cardiac pauses and syn cope. Cardiology consult. External pacemaker, keep telemetry. Monitor the patient closely in the ICU under the supervision of pulmonary/critical care team. Labs and medication were reviewed.. Continue same treatment. Continue with symptomatic treatment. Resume home medication. Monitor lytes and vitals. DVT and GI prophylaxis. Further recommendationsas per clinical course of the patient DVT prophylaxis: Subcutaneous heparin GI Prophylaxis: Pepcid Prognosis is guarded
--- NOTE | 2020-04-30 19:51 | P.PN ---
Subjective Progress Note Date: 04/30/20 The patient was seen at bedside and the she stated that she's doing well. She has not had any further episode of the passing out. I spoke with the cardiology nurse practitioner and seat she stated that the patient had 12 second the heart pause overnight and plan is to place pacemaker. Objective - Vital Signs Vital signs: Vital Signs Temp 97.3 F L 04/30/20 17:37 Pulse 61 04/30/20 17:37 Resp 20 04/30/20 17:37 BP 156/82 04/30/20 17:37 Pulse Ox 97 04/30/20 17:37 Intake & Output 04/30/20 04/30/20 05/01/20 06:59 18:59 06:59 Intake Total 512.5 04605.0 Output Total 910 1420 Balance -397.5 9210.0 Weight 48 kg Intake: IV 412.5 245.0 Sodium Chloride 0.9% 1, 80 000 ml @ 20 mls/hr IV . Q24H [facility] Rx#:[id number] Sodium Chloride 0.9% 1, 332.5 95.0 000 ml In Empty Bag 1 bag @ 1 ML/KG/HR 47.52 mls/ hr IV .Q21H3M [facility] Rx#: [id number] Intake, IV Titration 100 09206 Amount Magnesium Sulfate-D5w Pmx 63714 1 gm In Dextrose/Water 1 100ml.bag @ 100 mls/hr IVPB Q1H [facility] Rx#: [id number] Potassium Chloride 10 meq 100 In Water For Injection 1 100ml.bag @ 100 mls/hr IVPB Q1H [facility] Rx#: [id number] Oral 240 Output: Urine 910 1420 Other: Voiding Method Indwelling Catheter Indwelling Catheter - Exam GENERAL: The patient is lying in bed and is not in acute distress. CHEST: The heart rate is regular rate rhythm. No murmurs to auscultation. LUNG: Clear to auscultation bilaterally no wheezing noted throughout. Not labored breathing. NEUROLOGICAL: Higher mental function: The patient is awake, alert, oriented to self, place and time. Patient is following commands. No aphasia and no neglect. Cranial nerves: The pupils are round, equal and reactive to light and accommodation. Visual velazco are full to confrontation throughout. Extraocular movement is intact no nystagmus is noted. Facial sensation is normal to touch throughout. The facial strength is normal throughout. Hearing is normal bilaterally to hand rub. Tongue is midline and moved [id number] without any difficulty. No dysarthria is noted. Shoulder shrug is normal bilaterally. Motor: The strength is 5 over 5 throughout. Normal tone and bulk. Cerebellum: Normal finger to nose heel to chin bilaterally. Sensation: Sensation is normal to touch throughout. Reflexes (right/left): 2+ throughout. Plantars are downgoing bilaterally. - Labs CBC & Chem 7: 04/30/20 03:28 04/30/20 03:28 Labs: Abnormal Lab Results - Last 24 Hours (Table) 04/29/20 04/30/20 04/30/20 Range/Units 11:14 03:28 03:28 RBC 3.42 L (3.80-5.40) m/uL MCV 103.9 H (80.0-100.0) fL MCH 35.1 H (25.0-35.0) pg Sodium 135 L (137-145) mmol/L POC Glucose (mg/dL) (75-99) mg/dL RBC Folate 922 H (280 - 791) ng/mL 04/30/20 Range/Units 05:46 RBC (3.80-5.40) m/uL MCV (80.0-100.0) fL MCH (25.0-35.0) pg Sodium (137-145) mmol/L POC Glucose (mg/dL) 104 H (75-99) mg/dL RBC Folate (280 - 791) ng/mL Assessment and Plan Assessment: This is a 69-year-old woman that presented to the emergency department on 04/28/2020 after a syncopal episode. She denies of any urinary bowel incontinence or tongue bite. There is no history of seizures in the past. She did feel lightheaded prior to the episode. She had similar presentation about 1 year ago, and was dehydrate but did not seek medical attention. Syncope: Not seizure. Is cardiac in etiology (had 12 second cardiac pause per Nurse Practioner during hospital stay) Transient Cardiac pause Small tiny apical left sided pneumothorax likely due to trauma/fall. Macrocytosis History of benign essential hypertension History of eczema on methotrexate Tobacco dependence Plan: EEG (04/29/20): Normal routine EEG. There are no focal slowing program discharges or seizure during the this EEG. Antiepileptic drug is not needed since this is not a seizure. 2-D echo: Overall left ventricle systolic function is mildly impaired with ejection fraction of 45-50%. Left atrial size is normal. Continue cardiac monitoring Cardiology team is on board and the there are planning of placing a pacemaker today. Regarding the patient macrocytosis Vitamin B12: 683 (normal) and folate: 922 (high--normal). Patient was counseled on tobacco cessation. There is no further neurological workup. Neurology will sign off. Please reconsult if needed. Daljit Siegel M.D. Neuro-hospitalist Time with Patient: Less than 30
[2020-04-30] MEDS: FAMOTIDINE 20 MG TAB PO SCH (20:55)
[2020-04-30] MEDS: amLODIPine 10 MG TAB PO SCH (20:55)
[2020-05-01 06:48] LABS: Methylmalonic Acid 0.14 umol/L (<0.40)
[2020-05-01 09:04] LABS: Basophils % (A) 0 %; Eosinophils # (A) 0.1 k/uL (0-0.7); Eosinophils % (A) 1 %; HCT 37.4 % (34.0-46.0); HGB 12.6 gm/dL (11.4-16.0); Lymphocytes # (A) 1.3 k/uL (1.0-4.8); Lymphocytes % (A) 17 %; MCH 35.1 pg (25.0-35.0); MCHC 33.6 g/dL (31.0-37.0); MCV 104.3 fL (80.0-100.0); Macrocytosis Slight; Mean Platelet Volume 8.4; Monocytes # (A) 0.5 k/uL (0-1.0); Monocytes % (A) 7 %; Neutrophils # (A) 5.6 k/uL (1.3-7.7); Neutrophils % (A) 73 %; Platelet Count 264 k/uL (150-450); RBC 3.59 m/uL (3.80-5.40); RDW 12.1 % (11.5-15.5); WBC 7.7 k/uL (3.8-10.6)
[2020-05-01 09:20] LABS: African American GFR (CKD) >90 (>60 ml/min/1.73 sqM); Anion Gap 8 mmol/L; Blood Urea Nitrogen 7 mg/dL (7-17); Calcium 9.6 mg/dL (8.4-10.2); Carbon Dioxide 27 mmol/L (22-30); Chloride 101 mmol/L (98-107); Glucose 73 mg/dL (74-99); Magnesium 1.5 mg/dL (1.6-2.3); Non-African American GFR(CKD) >90 (>60 ml/min/1.73 sqM); Potassium 4.3 mmol/L (3.5-5.1); Sodium 136 mmol/L (137-145)
[2020-05-01] MEDS: FAMOTIDINE 20 MG TAB PO SCH ×2 (09:36→21:02)
[2020-05-01] MEDS: HEPARIN SODIUM,PORCINE 5,000 UNIT/ML 1 ML VIAL SQ SCH ×2 (09:36→21:01)
[2020-05-01] MEDS: FOLIC ACID 1 MG TAB PO SCH (09:36)
[2020-05-01] MEDS: hydroCHLOROthiazide 25 MG TAB PO SCH (09:36)
[2020-05-01] MEDS: lisinopriL 20 MG TAB PO SCH (09:36)
[2020-05-01] MEDS: amLODIPine 10 MG TAB PO SCH (09:36)
--- NOTE | 2020-05-01 12:13 | P.PN ---
Subjective Progress Note Date: 05/01/20 This is a 69-year-old female with past medical history significant for COPD, hypertension, hyperlipidemia, prior nicotine dependence, who presented to the hospital initially with symptoms of syncope. She was seen in consultation by Dr. Bolanos. Her echocardiogram with Doppler study revealed an ejection fraction of 45%, but otherwise within normal limits. Patient did have significant pauses noted on the monitor, and for this reason she was advised to undergo implantation of a permanent pacemaker which was performed by Dr. Elizabeth. Patient also had a Lexiscan stress test performed which showed evidence of reversible ischemia. Her chest x-ray from this morning did not show any evidence of complications status post pacemaker implantation. Last evening however the patient was quite confused, she was thrashing her arms around somewhat, unsure of what she had gone through. There is significant bruising noted at the pacemaker site requiring new dressing to be placed. This morning I had a look at her site, it was clean and dry, no evidence of swelling, and her dressing is dry and intact this morning. Patient was sitting up in her chair at the time of my examination, she was unsure of exactly where she was, she thought she was in the hospital but also thought she was at home. Continues to be quite confused. Her is at bedside he states that she had some mild confusion which was noted at home but this is significantly worse than her usual. I did have a lengthy discussion with the patient and the this morning, patient will require a cardiac catheterization because of the abnormal stress test. However, it is recommended that this be performed at a later date. Overall the patient today is hemodynamically stable. Blood pressure 160/70 with a heart ra te in the 70s, 94% on room air. White blood cell count 7.7, hemoglobin 12.6, platelet count 264. Sodium 136, potassium 4.3, BUN 7, creatinine 0.6, magnesium 1.5. Patient's rhythm strips were observed this morning, pacer appears to be functioning appropriately. We will await for the interrogation of her device today. From our perspective if her pacer device check is okay she should be able to be discharged home today, to follow-up with Dr. Caballero in 2 weeks. Her cardiac catheterization then will be arranged as an outpatient. This was discussed with the patient and her in detail this morning. Objective - Vital Signs Vital signs: Vital Signs Temp 97.0 F L 05/01/20 08:00 Pulse 78 05/01/20 08:00 Resp 18 05/01/20 08:00 BP 162/78 05/01/20 08:00 Pulse Ox 94 L 05/01/20 08:00 Intake & Output 04/30/20 05/01/20 05/01/20 18:59 06:59 18:59 Intake Total 79736.0 240 Output Total 1420 200 Balance 9210.0 -200 240 Weight 48.1 kg Intake: IV 245.0 Sodium Chloride 0.9% 1, 95.0 000 ml In Empty Bag 1 bag @ 1 ML/KG/HR 47.52 mls/ hr IV .Q21H3M [facility] Rx#: [id number] Intake, IV Titration 45385 Amount Magnesium Sulfate-D5w Pmx 31118 1 gm In Dextrose/Water 1 100ml.bag @ 100 mls/hr IVPB Q1H [facility] Rx#: [id number] Oral 240 240 Output: Urine 1420 200 Other: Voiding Method Indwelling Catheter Toilet Toilet # Voids 1 - Exam PHYSICAL EXAMINATION: GENERAL: 69-year-old female in no acute distress at the time of my examination, confused HEENT: Head is atraumatic, normocephalic. Pupils equal, round. Sclera anicteric. Conjunctiva are clear. Mucous membranes of the mouth are moist. Neck is supple. There is no elevated jugular venous pressure. No carotid bruit is heard. HEART EXAMINATION: Heart S1, S2 normal. No murmur or gallop heard. CHEST EXAMINATION: Lungs are clear to auscultation and precussion. No chest wall tenderness is noted on palpation or with deep breathing. Site of pacemaker implantation, dressing is dry and intact ABDOMEN: Soft, nontender. Bowel sounds are heard. No organomegaly noted. EXTREMITIES: 2+ peripheral pulses with no evidence of peripheral edema and no calf tenderness noted. NEUROLOGIC patient is awake, alert and oriented 1 . . - Labs CBC & Chem 7: 05/01/20 07:39 05/01/20 07:39 Labs: Abnormal Lab Results - Last 24 Hours (Table) 04/29/20 05/01/20 05/01/20 Range/Units 11:14 07:39 07:39 RBC 3.59 L (3.80-5.40) m/uL MCV 104.3 H (80.0-100.0) fL MCH 35.1 H (25.0-35.0) pg Sodium 136 L (137-145) mmol/L Glucose 73 L (74-99) mg/dL Magnesium 1.5 L (1.6-2.3) mg/dL RBC Folate 922 H (280 - 791) ng/mL Assessment and Plan Plan: Assessment and plan #1 syncope with evidence of cardiac pauses, status post implantation of permanent pacemaker. Chest x-ray from this morning did not reveal any complica tions post-device implantation. #2 5% right apical pneumothorax #3 hypertension #4 GERD #5 confusion, according to the , some of this is not new, however much worse than her usual. #6 Ralene scan stress test positive for reversible ischemia. Plan Cardiology's perspective, the patient's device will be interrogated this morning, if interrogation goes well the patient should be able to be discharged home today. We will make her a follow-up appointment in the device clinic and with Dr. Caballero. We will add a baby aspirin to her medication regime along with Lipitor, beta gamal, continue BRANDAN inhibitor. DNP note has been reviewed, I agree with a documented findings and plan of care. Patient was seen and examined.
[2020-05-01] MEDS: MAGNESIUM SULFATE-D5W PMX 1 GM in DEXTROSE/WATER 1 100ML.BAG IVPB SCH ×2 (14:32→15:33)
[2020-05-01] MEDS: MAGNESIUM OXIDE 400 MG TAB PO SCH (21:01)
[2020-05-01] MEDS: SODIUM CHLORIDE 0.9% 1,000 ML IV SCH (21:02)
--- NOTE | 2020-05-02 07:13 | P.PN ---
Subjective This is a pleasant 69 years old female with past medical history of asthma, GERD, hypertension, severe eczema on methotrexate and follow-up with , she is a patient of Dr. Deloris Jones. Presents because of passing out twice when she was at home. Patient was making her coffee when she felt dizzy and about to pass out, next think she found herself on the floor, her hold her getting into the couch. After the fall she felt some pain around the right shoulder plate However she denies chest pain or dyspnea or abdominal pain or change in urine or bowel habits. No fever she is ex-smoker and denies alcohol or illicit drugs she is bradycardic with heart rate 49-55, rest of 5-6 table. Labs are unremarkable including CBC, BMP, liver enzymes, urinalysis. Serial troponins 3 are negative with less than 0.012. Chest x-ray: 5% right apical pneumothorax CTA of the chest: No PE, 5% right apical pneumothorax, emphysema EKG showing normal sinus rhythm at [address]-T changes and 55.5 Repeat chest x-ray from 04/29 showing minimal residual left apical pneumothorax 04/30/2020 Patient underwent permanent pacemaker placement today, repeat chest x-ray postprocedure showed no complication. The Lexiscan stress test showing left ventricular ischemia, cardiology on the case and patient continued on aspirin 325 mg Echocardiogram showed ejection fraction 45-50% B12 is within normal limits at 683 We will order physical therapy evaluation Patient was transferred out of the ICU to select unit 05/01/2020 Patient status post permanent pacemaker. 2 days' post procedure day #1. Patient was doing well clinically with no symptoms, no chest pain and she denies dyspnea, no fever Patient was cleared for discharge by cardiology team however preoperatively to the hospital patient started bleeding from her pacemaker site, pressure was applied and bleeding controlled, discharge was held per aircraft navigator's recommendation for further management and monitoring. Repeat hemoglobin in the morning, check magnesium and potassium levels Objective - Vital Signs Vital signs: Vital Signs Temp 97.0 F L 05/01/20 08:00 Pulse 78 05/01/20 08:00 Resp 18 05/01/20 08:00 BP 162/78 05/01/20 08:00 Pulse Ox 94 L 05/01/20 08:00 Intake & Output 04/30/20 05/01/20 05/01/20 18:59 06:59 18:59 Intake Total 32594.0 240 Output Total 1420 200 Balance 9210.0 -200 240 Weight 48.1 kg Intake: IV 245.0 Sodium Chloride 0.9% 1, 95.0 000 ml In Empty Bag 1 bag @ 1 ML/KG/HR 47.52 mls/ hr IV .Q21H3M [facility] Rx#: [id number] Intake, IV Titration 18070 Amount Magnesium Sulfate-D5w Pmx 07480 1 gm In Dextrose/Water 1 100ml.bag @ 100 mls/hr IVPB Q1H [facility] Rx#: [id number] Oral 240 240 Output: Urine 1420 200 Other: Voiding Method Indwelling Catheter Toilet Toilet # Voids 1 - Exam GENERAL: The patient is alert and oriented x3, not in any acute distress. Well developed, well nourished. HEENT: Pupils are round and equally reacting to light. EOMI. No scleral icterus. No conjunctival pallor. Normocephalic, atraumatic. No pharyngeal erythema. No thyromegaly. CARDIOVASCULAR: S1 and S2 present. No murmurs, rubs, or gallops. PULMONARY: Chest is clear to auscultation, no wheezing or crackles. ABDOMEN: Soft, nontender, nondistended, normoactive bowel sounds. No palpable organomegaly. MUSCULOSKELETAL: No joint swelling or deformity. EXTREMITIES: No cyanosis, clubbing, or pedal edema. NEUROLOGICAL: Gross neurological examination did not reveal any focal deficits. SKIN: No rashes. no petechiae. - Labs CBC & Chem 7: 05/01/20 07:39 05/01/20 07:39 Labs: Abnormal Lab Results - Last 24 Hours (Table) 04/29/20 05/01/20 05/01/20 Range/Units 11:14 07:39 07:39 RBC 3.59 L (3.80-5.40) m/uL MCV 104.3 H (80.0-100.0) fL MCH 35.1 H (25.0-35.0) pg Sodium 136 L (137-145) mmol/L Glucose 73 L (74-99) mg/dL Magnesium 1.5 L (1.6-2.3) mg/dL RBC Folate 922 H (280 - 791) ng/mL Assessment and Plan Assessment: Cardiac pauses with syncope. Patient cardiac pauses were opted 12 seconds. Status post permanent pacemaker Bleeding from pacemaker site 5% right apical pneumothorax , improved. Symptomatic Essential hypertension Gastroesophageal reflux disease History of severe eczema on methotrexate Asthma, not in active tissue Plan: This is a pleasant 69 years old female who presents with cardiac pauses and syncope. Cardiology consult. Status post pacemaker, keep telemetry. Keep monitoring the patient for any further bleeding. Check hemoglobin and electrolytes. Pulmonary consult on the case. Labs and medication were reviewed.. Continue same treatment. Continue with symptomatic treatment. Resume home medication. Monitor lytes and vitals. DVT and GI prophylaxis. Further recommendationsas per clinical course of the patient DVT prophylaxis: Subcutaneous heparin GI Prophylaxis: Pepcid Prognosis is guarded
[2020-05-02] MEDS: FAMOTIDINE 20 MG TAB PO SCH (08:37)
[2020-05-02] MEDS: HEPARIN SODIUM,PORCINE 5,000 UNIT/ML 1 ML VIAL SQ SCH (08:37)
[2020-05-02] MEDS: MAGNESIUM OXIDE 400 MG TAB PO SCH (08:37)
[2020-05-02] MEDS: lisinopriL 20 MG TAB PO SCH (08:37)
[2020-05-02] MEDS: FOLIC ACID 1 MG TAB PO SCH (08:37)
[2020-05-02] MEDS: hydroCHLOROthiazide 25 MG TAB PO SCH (08:37)
[2020-05-02] MEDS: amLODIPine 10 MG TAB PO SCH (08:37)
[2020-05-02] MEDS ORDERED: ATORVASTATIN 40 MG TAB PO SCH (09:00)
[2020-05-02] MEDS ORDERED: METOPROLOL SUCCINATE (ER) 25 MG TAB.ER.24H PO SCH (09:00)
[2020-05-02] MEDS ORDERED: ASPIRIN 81 MG PO SCH (09:00)
[2020-05-02 09:55] VITALS: BP 129/83; PULSE 74; RESP 16; TEMP 97
[2020-05-02 13:04] LABS: HCT 38.2 % (34.0-46.0); HGB 13.3 gm/dL (11.4-16.0); MCH 35.6 pg (25.0-35.0); MCHC 34.8 g/dL (31.0-37.0); MCV 102.4 fL (80.0-100.0); Mean Platelet Volume 7.9; Platelet Count 263 k/uL (150-450); RBC 3.73 m/uL (3.80-5.40); WBC 7.3 k/uL (3.8-10.6)
[2020-05-02 13:20] VITALS: BMI 17.9
[2020-05-02] MEDS ORDERED: MAGNESIUM OXIDE 400 MG TAB PO STA (13:41)
--- NOTE | 2020-05-02 14:02 | P.PN ---
Subjective Progress Note Date: 05/02/20 HISTORY OF PRESENT ILLNESS: Patient examined this morning at the bedside. She is status post prior pacemaker insertion. She denies chest pain or pressure. Denies shortness of breath. No further bleeding from pacemaker insertion site. PHYSICAL EXAM: VITAL SIGNS: Reviewed. GENERAL: Well-developed in no acute distress. NECK: Supple. No JVD or thyromegaly LUNGS: Respirations even and unlabored. Lungs essentially clear to auscultation bilaterally. HEART: Regular rate and rhythm. S1 and S2 heard. Dressing to left chest clean dry and intact. EXTREMITIES: Normal range of motion. No clubbing or cyanosis. Peripheral pulses intact. No lower extremity edema ASSESSMENT: Syncope with evidence of sinus pauses, status post pacemaker insertion Hypertension Tiny left apical pneumothorax measuring 5% COPD Nicotine dependence Family history of coronary artery disease PLAN: Patient is stable for discharge home today. She is to follow up on an o utpatient basis with Dr. Bolanos Nurse practitioner note has been reviewed by physician. Signing provider agrees with the documented findings, assessment, and plan of care. Objective - Vital Signs Vital signs: Vital Signs Temp 97.0 F L 05/02/20 08:00 Pulse 74 05/02/20 08:00 Resp 16 05/02/20 08:00 BP 129/83 05/02/20 08:00 Pulse Ox 95 05/02/20 08:00 Intake & Output 05/01/20 05/02/20 05/02/20 18:59 06:59 18:59 Intake Total 680 240 Output Total 9 Balance 671 240 Weight 48.7 kg 48.7 kg Intake: Oral 680 240 Output: Stool 9 Other: Voiding Method Toilet Toilet Toilet # Voids 1 - Labs CBC & Chem 7: 05/02/20 12:38 05/01/20 07:39 Labs: Abnormal Lab Results - Last 24 Hours (Table) 05/02/20 Range/Units 12:38 RBC 3.73 L (3.80-5.40) m/uL MCV 102.4 H (80.0-100.0) fL MCH 35.6 H (25.0-35.0) pg
--- NOTE | 2020-05-03 02:03 | CDI ---
Documentation Clarification Form Date: 05/03/2020 From: Wm Underwood Phone: If you have a question about this query, please contact [facility] at [phone] between 8am and 5pm. Admit Date: 04/29/2020 Discharge Date: 05/02/2020 Patient Name: Stacy Bryant Visit Number: [id number] ATTENTION: The Clinical Documentation Specialists (CDI) and [facility] Coding Staff appreciate your assistance in clarifying documentation. Please respond to the clarification below the line at the bottom and electronically sign. The CDI & [facility] Coding staff will review the response and follow-up if needed. Please note: Queries are made part of the Legal Health Record. If you have any questions, please contact the author of this message via ITS. Dear Dr Loyd Pandey MD., Patient was cleared for discharge by cardiology team however preoperatively to the hospital patient started bleeding from her pacemaker site, pressure was applied and bleeding controlled, discharge was held per interior mechanic's recommendation for further management and monitoring. Patients Admitting Diagnosis: Sick sinus syndrome Post-Operative Diagnosis: Bleeding from pacemaker site Procedure performed: Pacemaker insertion History/Risk Factors: SSS, Hyperlipidemia .Status post pacemaker, keep telemetry.Keep monitoring the patient for any further bleeding. In order to accurately reflect this patients severity of illness, please clarify if the Bleeding from pacemaker site___ -has been ruled out -is a complication of surgical procedure -is an expected outcome of the surgical procedure -is related to co-morbid condition(s) of -Other please specify -Unable to determine is a complication of surgical procedure MTDD
--- NOTE | 2020-05-03 06:39 | P.DS ---
Providers Date of admission: 04/29/20 03:29 Attending physician: José Luis Messer Consults: 04/28/20 13:10 Consult Physician Stat Consulting Provider: Andrew Anaya Consult Reason/Comments: Syncope, <5% Pneumothorax, bleb, copd Do you want consulting provider notified?: Yes Consult Physician Stat Consulting Provider: Jhonny Bolanos Consult Reason/Comments: Syncope Do you want consulting provider notified?: Yes 04/28/20 16:55 Consult Physician Routine Consulting Provider: Daljit Siegel Consult Reason/Comments: syncope Do you want consulting provider notified?: Yes Primary care physician: Deloris Love [facility] Course: Date of service 05/02/2020 Diagnoses: Cardiac pauses with syncope. Patient cardiac pauses were 12 seconds in duration. Status post permanent pacemaker Bleeding from pacemaker site, secondary to above. Stopped and repeat hemoglobin is stable Mild hypomagnesemia, improved 5% right apical pneumothorax , improved. Symptomatic Essential hypertension Gastroesophageal reflux disease History of severe eczema on methotrexate Asthma, not in active tissue Hospital course This is a pleasant 69 years old female with past medical history of asthma, GERD, hypertension, severe eczema on methotrexate and follow-up with , she is a patient of Dr. Deloris Jones. Presents because of passing out twice when she was at home. On admission she is bradycardic with heart rate 49-55, Serial troponins 3 are negative with less than 0.012. Patient underwent permanent pacemaker placement on 04/30, repeat chest x-ray postprocedure showed no complication. On 05/01 patient was about to be discharged when she had some minor episodes of bleeding from pacemaker site, which is immediately controlled, patient kept overnight for monitoring and in the morning site looks dry and clean with no more evidence of bleeding which is stopped, repeat hemoglobin is a stable and normal at 13.3. Vital signs stable. Patient remained asymptomatic and at Self baseline. Patient was cleared for discharge by steam fitter On admission she has 5% right apical pneumothorax with emphysema on the chest x- ray,Repeat chest x-ray from 04/29 showing minimal residual left apical pneumothorax, patient with no respiratory symptoms. And her right shoulder pain resolved and patient was cleared for discharge by all consultants including cardiology and pulmonary Problems and management plan were discussed with the patient and he verbalized understanding and acceptance Patient was found stable and can be discharged home however he needs follow-up as an outpatient. Patient was instructed to follow up with PCP Dr. Deloris Jones within one week and patient agrees Patient agrees with the appointments made for her with Dr. Bolanos on 05/08 and states she will follow up Gen: patient is a AAOx3, no distress CVS: S1-S2, RRR, no murmur Lungs: B/L CTA, no wheezing Abdomen: soft, no distention, no tenderness, positive bowel sounds Extremity: no leg edema or induration Time spent more than 35 minutes Patient Condition at Discharge: Stable Plan - Discharge Summary Discharge Rx Participant: No New Discharge Prescriptions: New RX: Aspirin 81 mg PO DAILY #30 chew RX: Atorvastatin [Lipitor] 40 mg PO DAILY #30 tab RX: Magnesium Oxide [Mag-Ox] 400 mg PO BID 5 Days #10 tab RX: Nitroglycerin Sl Tabs [Nitrostat] 0.4 mg SUBLINGUAL Q5M PRN #20 tab PRN Reason: Chest Pain RX: amLODIPine [Norvasc] 10 mg PO DAILY #30 tab RX: Metoprolol Succinate (ER) [Toprol XL] 25 mg PO DAILY #30 tab.er.24h Continue RX: metHOTREXate sodium [Methotrexate] 15 mg PO WE RX: lisinopriL 40 mg PO DAILY RX: hydroCHLOROthiazide [Hydrodiuril] 25 mg PO DAILY RX: Folic Acid 1 mg PO [facility] Discharge Medication List RX: Folic Acid 1 mg PO SUMOTUTHFRSA 04/28/20 [History] RX: hydroCHLOROthiazide [Hydrodiuril] 25 mg PO DAILY 04/28/20 [History] RX: lisinopriL 40 mg PO DAILY 04/28/20 [History] RX: metHOTREXate sodium [Methotrexate] 15 mg PO WE 04/28/20 [History] RX: Aspirin 81 mg PO DAILY #30 chew 05/01/20 [Rx] RX: Atorvastatin [Lipitor] 40 mg PO DAILY #30 tab 05/01/20 [Rx] RX: Magnesium Oxide [Mag-Ox] 400 mg PO BID 5 Days #10 tab 05/01/20 [Rx] RX: Metoprolol Succinate (ER) [Toprol XL] 25 mg PO DAILY #30 tab.er.24h 05/01/20 [Rx] RX: Nitroglycerin Sl Tabs [Nitrostat] 0.4 mg SUBLINGUAL Q5M PRN #20 tab 05/01/20 [Rx] RX: amLODIPine [Norvasc] 10 mg PO DAILY #30 tab 05/01/20 [Rx] Follow up Appointment(s)/Referral(s): Deloris Love MD [Primary Care Provider] - 1-2 days (Please call office and set up appointment to be seen next week. Office will be open Tuesday ) Jhonny Bolanos MD [STAFF PHYSICIAN] - 05/08/20 10:30 am Patient Instructions/Handouts: Pacemaker (DC), Pacemaker (GEN) Activity/Diet/Wound Care/Special Instructions: Heart healthy diet Activities restricted until you see your doctor Discharge Disposition: HOME SELF-CARE
== END 2020-05-02 15:16 | disposition home or self-care (01) | DRG 243 ==
LOC: EC 09:06 → 1SOBS 13:14 → OBSVTOIN 04-29 03:29 → 2SICU 04-29 03:31 → 3SCARD 04-30 12:10
PROVIDERS: ADMIT Internal Medicine; ATTEND Internal Medicine
PROC: B51M1ZZ Fluoroscopy of Right Upper Extremity Veins using Low Osmolar Contrast (ICD-10-PCS; principal; 2020-04-30 10:30)
PROC: 0JH606Z Insertion of Pacemaker, Dual Chamber into Chest Subcutaneous Tissue and Fascia, Open Approach (ICD-10-PCS; principal; 2020-04-30 10:30)
PROC: 02HK3JZ Insertion of Pacemaker Lead into Right Ventricle, Percutaneous Approach (ICD-10-PCS; principal; 2020-04-30 10:30)
PROC: 02H63JZ Insertion of Pacemaker Lead into Right Atrium, Percutaneous Approach (ICD-10-PCS; principal; 2020-04-30 10:30)
DX: I49.5 Sick sinus syndrome (principal); J93.83 Other pneumothorax; L76.22 Postprocedural hemorrhage of skin and subcutaneous tissue following other procedure; E78.5 Hyperlipidemia, unspecified; G89.29 Other chronic pain; F17.210 Nicotine dependence, cigarettes, uncomplicated; I10 Essential (primary) hypertension; L30.9 Dermatitis, unspecified; E83.42 Hypomagnesemia; J44.9 Chronic obstructive pulmonary disease, unspecified; K21.9 Gastro-esophageal reflux disease without esophagitis; Z79.899 Other long term (current) drug therapy; Z82.49 Family history of ischemic heart disease and other diseases of the circulatory system; Z90.710 Acquired absence of both cervix and uterus; Z98.891 History of uterine scar from previous surgery; Z87.01 Personal history of pneumonia (recurrent)
CPT/HCPCS: 33208; 36415; 70450; 71045; 71046; 71275; 72125; 78452; 80048; 80053; 81001; 82607; 82747; 83735; 83921; 84132; 84443; 84484; 85025; 85027; 85379; 85610; 85730; 93005; 93017; 93306; 93880; 95816; 96361; 96365; 96366; 96375; 99285

== ENCOUNTER → 2020-06-02 | Outpatient (CLI) | payer MEDICARE, OTHER ==
--- NOTE | 2020-06-02 13:14 | BD ---
EXAMINATION TYPE: Axial Bone Density DATE OF EXAM: 06/02/2020 COMPARISON: DEXA bone scan December 31, 2015 CLINICAL HISTORY: Postmenopausal female. Height: 65.5 Weight: 106.3 FRAX RISK QUESTIONS: Alcohol (3 or more units per day): no Family History (Parent hip fracture): no Glucocorticoids (More than 3mos): no (Ex: prednisone, prednisolone, methylprednisolone, dexamethasone, and hydrocortisone). History of Fracture in Adulthood: no Secondary Osteoporosis: 1. Type 1 Diabetes: no 2. Hyperthyroidism: no 3. Menopause before 45: no 4. Malnutrition: no 5. Chronic liver disease: no Rheumatoid Arthritis: no Current Tobacco Use: no RISK FACTORS HISTORY OF: Family History of Osteoporosis: yes Active: yes Diet low in dairy products/other sources of calcium: no Postmenopausal woman: age 57 Lost more than 2 inches in height since high school: no MEDICATIONS: Additional History: EXAM MEASUREMENTS: Bone mineral densitometry was performed using the [employer]. Bone mineral density as measured about the Lumbar spine is: ----- L1-L4(G/cm2): 1.239 T Score Values are as follows: ----- L2: 0.8 ----- L3: 0.8 ----- L4: 1.1 ----- L1-L4: 0.5 Bone mineral density has: increased 4.0 % since study of: 12.31.2015 Bone mineral density about the R hip (g/cm2): 0.916 Bone mineral density about the L hip (g/cm2): 0.936 T Score values are as follows: -----R Neck: -0.9 -----L Neck: -0.7 -----R Total: -1.6 -----L Total: -1.4 Bone mineral density has: DECREASED -9.1 % since study of: 12.31.2015 IMPRESSION: Osteopenia (T Score between -2.5 and -1) remains present. There is slightly increased risk of fracture and the patient may be considered for treatment. Re-Screen 2-5 years. NOTE: T-SCORE=SD OF THE YOUNG ADULT MEAN.
--- NOTE | 2020-06-03 14:39 | MM ---
Reason for exam: screening (asymptomatic). Last mammogram was performed 11 months ago. History: Patient is postmenopausal. Family history of breast cancer in paternal aunt at age 50. Took hormonal contraceptives for 10 years beginning at age 22. Took estrogen for 2 months beginning at age 53. Physical Findings: A clinical breast exam by your physician is recommended on an annual basis and results should be correlated with mammographic findings. MG 3D Screening Mammo W/Cad Bilateral CC and MLO view(s) were taken. Prior study comparison: June 26, 2019, bilateral MG 3d screening mammo w/cad. March 27, 2018, bilateral MG screening mammo w CAD. The breast tissue is extremely dense which could obscure a lesion on mammography. No significant changes when compared with prior studies. ASSESSMENT: Negative, BI-RAD 1 RECOMMENDATION: Routine screening mammogram of both breasts in 1 year.
== END | disposition home or self-care (01) ==
LOC: RADMAMWWP 11:06
PROVIDERS: ATTEND Family Medicine
DX: Z12.31 Encounter for screening mammogram for malignant neoplasm of breast (principal); M85.80 Other specified disorders of bone density and structure, unspecified site; Z78.0 Asymptomatic menopausal state
CPT/HCPCS: 77063; 77067; 77080

== ENCOUNTER → 2020-08-15 | Outpatient (CLI) | payer MEDICARE, OTHER | END | disposition home or self-care (01) | LOC: LABPAT 08:57 | PROVIDERS: ATTEND Internal Medicine Interventional Cardiology | DX: Z53.9 Procedure and treatment not carried out, unspecified reason (principal) ==

== ENCOUNTER 2020-08-26 06:15 | Day surgery (SDC) | payer MEDICARE, OTHER ==
[2020-08-20 14:16] VITALS: BMI 17.9
[~2020-08-26 06:15] MED LIST: ALPRAZolam 0.25 MG TAB PO PRN; ALPRAZolam 0.5 MG TAB PO PRN; NITROGLYCERIN SL TABS 0.4 MG TAB SUBLINGUAL PRN; SODIUM CHLORIDE 0.9% 1,000 ML in EMPTY BAG 1 BAG IV ONE
[2020-08-26] MEDS ORDERED: SODIUM CHLORIDE 0.9% 1,000 ML IV ONE (06:30)
[2020-08-26 06:50] VITALS: RESP 16; TEMP 97.2
[2020-08-26] MEDS ORDERED: ATORVASTATIN 80 MG TAB PO ONE (07:00)
[2020-08-26] MEDS ORDERED: ASPIRIN 325 MG TAB PO ONE (07:00)
[2020-08-26] MEDS ORDERED: LIDOCAINE 1% INJ 10MG/ML (20 ML MDV) ONE (07:17)
[2020-08-26] MEDS ORDERED: HEPARIN SODIUM 1,000 UN/ML (10ML VL) ONE (07:17)
[2020-08-26] MEDS ORDERED: VERAPAMIL 2.5 MG/ML 2 ML AMP ONE (07:17)
[2020-08-26] MEDS ORDERED: fentaNYL (PF) 50 MCG/ML 2 ML AMP ONE (07:38)
[2020-08-26] MEDS ORDERED: fentaNYL (PF) 50 MCG/ML 2 ML AMP IVP ONE (07:56)
[2020-08-26] MEDS ORDERED: LIDOCAINE 1% INJ 10MG/ML (20 ML MDV) SQ ONE (07:56)
[2020-08-26] MEDS ORDERED: VERAPAMIL SYRINGE (5 MG/10 ML) INTRAARTER ONE (07:58)
[2020-08-26] MEDS ORDERED: HEPARIN SODIUM 1,000 UN/ML (10ML VL) IV ONE (08:03)
[2020-08-26] MEDS ORDERED: RX INFO: IV CONTRAST WAS GIVEN 1 EACH MISC MISCELLANE PRN (08:19)
[2020-08-26] MEDS ORDERED: NITROGLYCERIN SL TABS 0.4 MG TAB SUBLINGUAL PRN (08:20)
[2020-08-26] MEDS ORDERED: SODIUM CHLORIDE 0.9% 1,000 ML IV SCH (08:30)
--- NOTE | 2020-08-26 09:49 | CC ---
CARDIAC CATHETERIZATION REPORT Mrs. Bryant is a 69-year-old female with a known history of hypertension, hyperlipidemia, history of cardiomyopathy and permanent pacemaker implantation, who recently had evidence of stress-induced ischemia on her MPI and she had an episode of nonsustained ventricular tachycardia on the interrogation of her device. Based on those findings, recommendation was made regarding cardiac catheterization. The procedure, its risks and the complications were discussed with the patient who is in full understanding and agreement. PROCEDURE: Patient was brought to the laborer mine in the fasting semi-sedated state after receiving fentanyl and Benadryl and achieving moderate conscious sedated state. Using Xylocaine anesthesia and Seldinger technique a 6-Hungarian sheath was introduced in the right radial artery. Selective right and left coronary angiography performed using 5-Hungarian 3.5 bend right and left Tripp catheter. Multiple views of the coronary artery including hemiaxial views were obtained. The 5-Hungarian right Tripp was used to cross the aortic valve and the left ventricular end-diastolic pressure was calculated. Following that, catheter and sheath were removed. Hemostasis was obtained with deployment of TR band. There was no immediate complication. Patient was returned to her room in stable condition. Of note, the patient received a total of 3000 units of intravenous heparin as well as intra-arterial verapamil. There was no immediate complication. FINDINGS: LEFT MAIN: This is a large-sized vessel, bifurcating into left circumflex, left anterior descending artery. Left main coronary artery has no evidence of high-grade stenosis, LEFT ANTERIOR DESCENDING ARTERY: This vessel tapers down distal third, gives rise to 2 diagonal branches, the first one is larger in caliber. The left anterior descending artery as well as branches have no evidence of high-grade stenosis. There is mild plaque at the takeoff of the first diagonal branch of 20% to 30% LEFT CIRCUMFLEX: This is a nondominant vessel giving rise to 2 obtuse marginal branches. The left circumflex has mild plaque proximally of 20% without any evidence of high-grade stenosis. RIGHT CORONARY ARTERY: This is a dominant vessel bifurcating distally PDA and posterolateral segment and branches. The right coronary artery proximally has 20% to 30% plaque without any evidence of high-grade stenosis. LEFT VENTRICULOGRAM: Left ventriculogram was not performed. HEMODYNAMICS: There was no gradient across the aortic valve. The left ventricular end-diastolic pressure was 14-16 mmHg. CONCLUSION: 1. Mild triple-vessel coronary artery disease. 2. Right dominance. RECOMMENDATION: In view of finding anatomy, recommend continue with medical therapy with aggressive coronary risk modifications that have been initiated including smoking cessation. Those findings and recommendation were discussed with the patient and her family and they are in full understanding and agreement. Duration of sedation is 14 minutes. MMODL / IJN: [id number] /
--- NOTE | 2020-08-26 10:02 | LTR ---
August 26, 2020 Re: Stacy Bryant Dear Dr. Love: I had the opportunity to perform cardiac catheterization on Mrs. Bryant at [facility] on the 26 of August and a full copy of the procedure note will be forwarded to you. In brief, she was found to have mild triple-vessel coronary artery disease without any evidence of high-grade stenosis and based on those findings, I recommend continue medical therapy with the aggressive coronary risk modifications being initiated. Thank you again for allowing me the opportunity to participate in her care. Please feel free to call for any questions. Sincerely yours, Jackson Butt MD MMSANGL / KATELYNNN: [id number] /
[2020-08-26 12:05] VITALS: PULSE 60
[2020-08-26 12:07] VITALS: BP 139/65
[2020-08-26] MEDS ORDERED: MAGNESIUM OXIDE 400 MG TAB PO SCH (21:00)
[2020-08-27] MEDS ORDERED: metHOTREXate sodium 2.5 MG TAB PO SCH (09:00)
[2020-08-27] MEDS ORDERED: amLODIPine 5 MG TAB PO SCH (09:00)
[2020-08-27] MEDS ORDERED: ATORVASTATIN 10 MG TAB PO SCH (09:00)
[2020-08-27] MEDS ORDERED: METOPROLOL SUCCINATE (ER) 25 MG TAB.ER.24H PO SCH (09:00)
[2020-08-27] MEDS ORDERED: ASPIRIN 81 MG PO SCH (09:00)
[2020-08-27] MEDS ORDERED: lisinopriL 20 MG TAB PO SCH (09:00)
[2020-08-27] MEDS ORDERED: hydroCHLOROthiazide 25 MG TAB PO SCH (09:00)
== END 2020-08-26 13:41 | disposition home or self-care (01) ==
LOC: CATHCVL 06:15
PROVIDERS: ATTEND Internal Medicine Interventional Cardiology
DX: I25.10 Atherosclerotic heart disease of native coronary artery without angina pectoris (principal); I10 Essential (primary) hypertension; E78.2 Mixed hyperlipidemia; Z95.0 Presence of cardiac pacemaker; Z87.891 Personal history of nicotine dependence; R94.39 Abnormal result of other cardiovascular function study; Z82.49 Family history of ischemic heart disease and other diseases of the circulatory system; Z90.710 Acquired absence of both cervix and uterus; Z79.82 Long term (current) use of aspirin; Z79.899 Other long term (current) drug therapy
CPT/HCPCS: 93458; C1769; C1894; J2001; J3010; J1644

== ENCOUNTER → 2020-12-03 | Outpatient (CLI) | payer MEDICARE, OTHER ==
[2020-12-03 14:40] LABS: Basophils # (A) 0.04 X 10*3/uL (0.00-0.10); Basophils % (A) 0.6 %; Eosinophils # (A) 0.15 X 10*3/uL (0.04-0.35); Eosinophils % (A) 2.3 %; HCT 38.1 % (37.2-46.3); Lymphocytes # (A) 1.91 X 10*3/uL (0.90-5.00); Lymphocytes % (A) 28.8 %; MCH 34.1 pg (27.0-32.0); MCHC 34.1 g/dL (32.0-37.0); Monocytes # (A) 0.44 X 10*3/uL (0.20-1.00); Monocytes % (A) 6.6 %; Neutrophils # (A) 4.07 X 10*3/uL (1.80-7.70); Neutrophils % (A) 61.4 %; Platelet Count 245 X 10*3/uL (140-440); RBC 3.81 X 10*6/uL (4.10-5.20); RDW 12.3 % (11.5-14.5); WBC 6.63 X 10*3/uL (4.50-10.00)
[2020-12-03 16:58] LABS: African American GFR (CKD) 103.2 (60.0-200.0)
== END | disposition home or self-care (01) ==
LOC: LABWHC1 09:46
PROVIDERS: ATTEND Physician Assistant Medical
DX: L20.89 Other atopic dermatitis (principal)
CPT/HCPCS: 36415; 82565; 84450; 84460; 84520; 85025

== ENCOUNTER → 2021-08-28 | Outpatient (CLI) | payer MEDICARE, OTHER ==
--- NOTE | 2021-08-31 11:38 | MM ---
Reason for exam: screening (asymptomatic). Last mammogram was performed 1 year and 3 months ago. History: Patient is postmenopausal. Family history of breast cancer in paternal aunt at age 50. Took hormonal contraceptives for 10 years beginning at age 22. Took estrogen for 2 months beginning at age 53. Physical Findings: A clinical breast exam by your physician is recommended on an annual basis and results should be correlated with mammographic findings. MG 3D Screening Mammo W/Cad Bilateral CC and MLO view(s) were taken. Prior study comparison: June 02, 2020, bilateral MG 3d screening mammo w/cad. June 26, 2019, bilateral MG 3d screening mammo w/cad. The breast tissue is heterogeneously dense. This may lower the sensitivity of mammography. There are indeterminate calcifications in the left breast at 6 o'clock. This finding is changed when compared with previous exams. ASSESSMENT: Incomplete: need additional imaging evaluation, BI-RAD 0 RECOMMENDATION: Special view mammogram of the left breast. [facility] will attempt to contact patient to return for supplemental views.
== END | disposition home or self-care (01) ==
LOC: RADMAMWWP 08-18 07:55
PROVIDERS: ATTEND Family Medicine
DX: Z12.31 Encounter for screening mammogram for malignant neoplasm of breast (principal); Z78.0 Asymptomatic menopausal state; Z80.3 Family history of malignant neoplasm of breast
CPT/HCPCS: 77063; 77067

== ENCOUNTER → 2021-09-02 | Outpatient (CLI) | payer MEDICARE, OTHER ==
--- NOTE | 2021-09-02 08:29 | MM ---
Reason for exam: additional evaluation requested from abnormal screening. Last mammogram was performed less than 1 month ago. History: Patient is postmenopausal. Family history of breast cancer in paternal aunt at age 50. Took hormonal contraceptives for 10 years beginning at age 22. Took estrogen for 2 months beginning at age 53. Physical Findings: A clinical breast exam by your physician is recommended on an annual basis and results should be correlated with mammographic findings. MG 3D Work Up W/Cad LT CC with magnification, LM with magnification, and LM view(s) were taken of the left breast. Prior study comparison: August 28, 2021, bilateral MG 3d screening mammo w/cad. June 02, 2020, bilateral MG 3d screening mammo w/cad. The breast tissue is heterogeneously dense. This may lower the sensitivity of mammography. Course calcifications in the left breast. No suspicious calcifications are seen. These results were verbally communicated with the patient and result sheet given to the patient on 09/02/21. ASSESSMENT: Benign, BI-RAD 2 RECOMMENDATION: Return to routine screening mammogram schedule for both breasts.
== END | disposition home or self-care (01) ==
LOC: RADMAMWWP 07:56
PROVIDERS: ATTEND Family Medicine
DX: R92.8 Other abnormal and inconclusive findings on diagnostic imaging of breast (principal); Z78.0 Asymptomatic menopausal state; Z80.3 Family history of malignant neoplasm of breast
CPT/HCPCS: 77065; G0279; 77061

== ENCOUNTER → 2021-09-22 | Outpatient (CLI) | payer MEDICARE, OTHER ==
[2021-09-23 00:18] LABS: HCT 44.1 % (37.2-46.3); HGB 14.5 g/dL (12.0-15.0); MCH 33.8 pg (27.0-32.0); MCHC 32.9 g/dL (32.0-37.0); MCV 102.8 fL (80.0-97.0); Mean Platelet Volume 12.9 fL (9.5-12.2); NRBC Per 100 WBC 0 /100 WBCS (0.0-0.0); Platelet Count 205 X 10*3/uL (140-440); RBC 4.29 X 10*6/uL (4.10-5.20); RDW 12.3 % (11.5-14.5); WBC 11.16 X 10*3/uL (4.50-10.00)
[2021-09-23 04:32] LABS: African American GFR (CKD) 76.1 (60.0-200.0); Albumin/Globulin Ratio 1.61 (1.60-3.17); Anion Gap 11.8 mmol/L (10.00-18.00); BUN/Creat Ratio 20.11 Ratio (12.00-20.00); Blood Urea Nitrogen 18.1 mg/dL (9.0-27.0); Calcium 10.3 mg/dL (8.7-10.3); Carbon Dioxide 27.2 mmol/L (20.0-27.5); Globulin 3.1 g/dL (1.6-3.3); Non-African American GFR(CKD) 65.7 (60.0-200.0); Potassium 4.5 mmol/L (3.5-5.5); Total Bilirubin 0.3 mg/dL (0.30-1.20); Total Protein 8.1 g/dL (6.2-8.2)
== END | disposition home or self-care (01) ==
LOC: LABWHC1 10:32
PROVIDERS: ATTEND Internal Medicine Interventional Cardiology
DX: I48.0 Paroxysmal atrial fibrillation (principal)
CPT/HCPCS: 36415; 80053; 84443; 85027

== ENCOUNTER → 2022-04-23 | Outpatient (CLI) | payer MEDICARE, OTHER ==
[2022-04-23 18:10] LABS: African American GFR (CKD) 87.2 (60.0-200.0); Anion Gap 11.6 mmol/L (10.00-18.00); Blood Urea Nitrogen 13.4 mg/dL (9.0-27.0); Carbon Dioxide 27.4 mmol/L (20.0-27.5); Non-African American GFR(CKD) 75.2 (60.0-200.0); Potassium 3.9 mmol/L (3.5-5.5)
== END | disposition home or self-care (01) ==
LOC: LABWHC1 10:15
PROVIDERS: ATTEND Internal Medicine Interventional Cardiology
DX: I10 Essential (primary) hypertension (principal)
CPT/HCPCS: 36415; 80051; 82565; 84520

== ENCOUNTER → 2022-07-21 | Outpatient (CLI) | payer MEDICARE, OTHER ==
--- NOTE | 2022-07-21 16:40 | CTL ---
EXAMINATION TYPE: CT Low Dose Lung DATE OF EXAM ORDERED: 07/21/2022 HISTORY: . Lung tobacco use cancer screening CT DLP: 43.[address] CTDI: 1.2 mGy Automated exposure control for dose reduction was used. SCREENING VISIT: Initial COMPARISON: None TECHNIQUE: Low dose computed tomography scan was performed through the chest at 1 mm thick sections a nd reconstructed images in the coronal plane at [address] DIAGNOSTIC QUALITY: Satisfactory FINDINGS: LUNG NODULES: Present, detailed below: There is a groundglass opacity within the left mid lung. Series 4 image 112 right short-term follow-u p in 6 months is recommended. There may be an underlying nodule present measuring at 0.4 cm. Series 4 image 107. LUNGS: COPD: Severity: None Fibrosis: Severity: None Lymph nodes: None Other findings: None RIGHT PLEURAL SPACE: Effusion: None Calcification: None Thickening: None Pneumothorax: None LEFT PLEURAL SPACE: Effusion: None Calcification: None Thickening: None Pneumothorax: None HEART: Heart Size: Normal Coronary calcification: None Pericardial effusion: None OTHER FINDINGS: Upper abdomen: Normal Bony thorax: Normal Supraclavicular region: Normal Other: Ascending thoracic aorta at the level the main pulmonary artery measures 3.0 cm. The main pul monary artery at the bifurcation measures 2.2 cm. IMPRESSION: 1. Focal area of pneumonitis in the left 0.4 cm underlying nodule. Findings are likely benign, short term follow-up however is recommended FOLLOW UP CT CHEST RECOMMENDATION: Follow-up CT chest in [address] LUNG RAD: Lung-Rad 3 Probably Benign
== END | disposition home or self-care (01) ==
LOC: RADCTMAIN 08:26
PROVIDERS: ATTEND Family Medicine
DX: Z12.2 Encounter for screening for malignant neoplasm of respiratory organs (principal); J18.9 Pneumonia, unspecified organism; R91.1 Solitary pulmonary nodule; Z87.891 Personal history of nicotine dependence
CPT/HCPCS: 71271

== ENCOUNTER → 2022-12-01 | Outpatient (CLI) | payer MEDICARE, OTHER ==
[2022-12-01 16:15] LABS: ALT 25 U/L (8-44); AST 32 U/L (13-35); Blood Urea Nitrogen 18.7 mg/dL (9.0-27.0)
[2022-12-01 19:29] LABS: Basophils # (A) 0.04 X 10*3/uL (0.00-0.10); Basophils % (A) 0.6 %; Eosinophils # (A) 0.15 X 10*3/uL (0.04-0.35); Eosinophils % (A) 2.1 %; HCT 36.9 % (37.2-46.3); HGB 12.2 d/dL (12.0-15.0); Lymphocytes # (A) 1.93 X 10*3/uL (0.90-5.00); Lymphocytes % (A) 26.6 %; MCH 34.5 pg (27.0-32.0); MCHC 33.1 d/dL (32.0-37.0); MCV 104.2 FL (80.0-97.0); Mean Platelet Volume 11.4 FL (9.5-12.2); Monocytes % (A) 9.7 %; NRBC Per 100 WBC 0 X 10*3/uL (0.00-0.01); Neutrophils % (A) 60.6 %; Platelet Count 238 X 10*3/uL (140-440); RBC 3.54 X 10*6/uL (4.10-5.20); RDW 12.1 % (11.5-14.5); WBC 7.25 X 10*3/uL (4.50-10.00)
== END | disposition home or self-care (01) ==
LOC: LABWHC1 09:13
PROVIDERS: ATTEND Physician Assistant Medical
DX: L20.89 Other atopic dermatitis (principal)
CPT/HCPCS: 36415; 82565; 84450; 84460; 84520; 85025

== ENCOUNTER → 2023-02-22 | Outpatient (CLI) | payer MEDICARE, OTHER ==
[2023-02-22 15:57] LABS: ALT 25 U/L (8-44); AST 33 U/L (13-35); Albumin 5.1 d/dL (3.8-4.9); Albumin/Globulin Ratio 2.04 Ratio (1.60-3.17); Alkaline Phosphatase 89 U/L (41-126); Blood Urea Nitrogen 14.7 mg/dL (9.0-27.0); Calcium 10.6 mg/dL (8.7-10.3); Carbon Dioxide 23.8 mmol/L (21.6-31.8); Chloride 96 mmol/L (96-109); Chol/HDL Ratio 2.91 Ratio; Globulin 2.5 d/dL (1.6-3.3); Glucose 91 mg/dL (70-110); LDL Cholesterol,Calculated 81.8 mg/dL (0.0-131.0); Potassium 5.3 mmol/L (3.5-5.5); Sodium 133 mmol/L (135-145); Total Bilirubin 0.4 mg/dL (0.3-1.2); Total Protein 7.6 d/dL (6.2-8.2)
== END | disposition home or self-care (01) ==
LOC: LABWHC1 10:50
PROVIDERS: ATTEND Internal Medicine Interventional Cardiology
DX: E78.2 Mixed hyperlipidemia (principal)
CPT/HCPCS: 36415; 80053; 80061

== ENCOUNTER → 2023-06-17 | Outpatient (CLI) | payer MEDICARE, OTHER ==
--- NOTE | 2023-06-17 19:30 | BD ---
EXAMINATION TYPE: Axial Bone Density DATE OF EXAM: 06/17/2023 CLINICAL HISTORY: 72 years old Female. ICD-10 CODE: M85.9 DISORDER OF BONE Height: 64.5 Weight: 104.1 FRAX RISK QUESTIONS: Alcohol (3 or more units per day): no Family History (Parent hip fracture): no Glucocorticoids (More than 3mos): no History of Fracture in Adulthood: no Secondary Osteoporosis: 1. Type 1 Diabetes: no 2. Hyperthyroidism: no 3. Menopause before 45: no 4. Malnutrition: no 5. Chronic liver disease: no Rheumatoid Arthritis: no Current Tobacco Use: yes RISK FACTORS HISTORY OF: Hip Fracture (Right/Left): no Spine Fracture: no History of Wrist Fracture: no Surgery to Spine/Hip(right/left)/Wrist (right/left): no Family History of Osteoporosis: no Active: no Diet low in dairy products/other sources of calcium: yes Postmenopausal woman: yes Take estrogen and/or progesterone medications: no Lost more than 2 inches in height since high school: no Frequent falls: no Poor Health: no Hyperparathyroidism: no Adrenal Insufficiency: no MEDICATIONS: Prednisone or other steroids: no Thyroid Medications: no Osteoporosis Medications: no Additional Medications: BP Meds, Additional History: EXAM MEASUREMENTS: Bone mineral densitometry was performed using the [employer] System. Bone mineral density as measured about the Lumbar spine is: ----- L1-L4(G/cm2): 1.208 T Score Values are as follows: ----- L1: -1.14 ----- L2: 0.9 ----- L3: 1.0 ----- L4: 0.2 ----- L1-L4: 0.2 Z Score Values are as follows: ----- L1: 0.8 ----- L2: 3.2 ----- L3: 3.2 ----- L4: 2.4 ----- L1-L4: 2.5 Bone mineral density has: decreased -2.5 % since study of: 06/02/2020 Bone mineral density about the R hip (g/cm2): 0.791 Bone mineral density about the L hip (g/cm2): 0.769 T Score values are as follows: -----R Neck: -1.0 -----L Neck: 1.2 -----R Total: -1.7 -----L Total: -1.9 Z Score values are as follows: -----R Neck: 1.1 -----L Neck 0.9 -----R Total: 0.2 -----L Total: 0.0 Bone mineral density has: decreased -4.3 % since study of: 06/02/2020 FRAX%s: The graph provided illustrates a 7.6% chance for a major osteoporotic fx and a 17% chance for the hips probability for fx in 10 years time. IMPRESSION: Osteopenia (T Score between -2.5 and -1). There is slightly increased risk of fracture and the patient may be considered for treatment. Re-Screen 2-5 years. NOTE: T-SCORE=SD OF THE YOUNG ADULT MEAN.
--- NOTE | 2023-06-22 08:15 | MM ---
Reason for Exam: Screening (asymptomatic). Last mammogram was performed 1 year(s) and 9 month(s) ago. Patient History: Menarche at age 14. First Full-Term at age 21. Left ovary removed at age 53. Right ovary removed at age 53. Hysterectomy at age 53. Postmenopausal. Estrogen for 2 months from age 53 until age 53. Hormonal Contraceptives for 10 years from age 22 until age 32. Paternal aunt had breast cancer, age 50. Risk Values: Radha 5 year model risk: 1.2%. NCI Lifetime model risk: 3.7%. Prior Study Comparison: 06/02/2020 Bilateral Screening Mammogram, [facility]. 08/28/2021 Bilateral Screening Mammogram, [facility]. 09/02/2021 Left Diagnostic Mammogram, [facility]. Tissue Density: The breast tissue is heterogeneously dense. This may lower the sensitivity of mammography. Findings: Analyzed By CAD. There is no suspicious group of microcalcifications or new suspicious mass. Overall Assessment: Negative, BI-RAD 1 Management: Screening Mammogram of both breasts in [address] [facility] will attempt to contact patient to return for supplemental views and ultrasound if indicated. Patient should continue monthly self-breast exams. A clinical breast exam by your physician is recommended on an annual basis. This exam should not preclude additional follow-up of suspicious palpable abnormalities. Note on Radha scores and lifetime risk: 1. A Radha score greater than 3% is considered moderate risk. If this is the case, consider specialist referral to assess eligibility for a risk reducing agent. 2. If overall lifetime risk for the development of breast cancer is 20% or higher, the patient may qualify for future screening with alternating mammogram and breast MRI. Electronically signed and approved by: Tomas Ritter DO
== END | disposition home or self-care (01) ==
LOC: RADMAMWWP 10:09
PROVIDERS: ATTEND Family Medicine
DX: Z12.31 Encounter for screening mammogram for malignant neoplasm of breast (principal); M85.88 Other specified disorders of bone density and structure, other site; Z78.0 Asymptomatic menopausal state; Z80.3 Family history of malignant neoplasm of breast
CPT/HCPCS: 77063; 77067; 77080